=== PATIENT | female | born 1995 | race African-American/Black ===

== ENCOUNTER 2020-10-20 15:06 | Emergency (ER) | payer OTHER, SELFPAY ==
[2020-10-20 15:33] VITALS: BP 138/89; PULSE 92; RESP 16; TEMP 36.6; O2SAT 100
--- NOTE | 2020-10-20 15:53 | ED.BACK ---
HPI - Back Pain/Injury General Chief Complaint: Back Pain/Injury Stated Complaint: BACK PAIN Time Seen by Provider: 10/20/20 15:54 Source: patient and RN notes reviewed Mode of arrival: ambulatory Limitations: no limitations History of Present Illness HPI Narrative: 25-year-old female presents to [facility] with multiple complaints. Primary complaint is lower back pain since 14 October. States that she has been homeless and sleeping on friends and family's floors. States the pain keeps getting worse. Denies any loss of bowel or bladder. No numbness or tingling in extremities. Patient reports that when she walks that her left lower back starts to hurt. Denies any chest pain or abdominal pain. No saddle anesthesia. Walks with a normal gait. Denies any trauma to the area recently. Denies any urinary symptoms. States that she has had trouble with focusing and would like medication to help her focus and to help with depression and anxiety. Denies any homicidal or suicidal thoughts. When discussed with patient offered to transfer her to a local mental health ER which she declined. Multiple times patient was asked about homicidal and suicidal thoughts encourage patient to follow-up. Patient states that she is child had asthma and would like not like it to return. Patient not having any or signs and symptoms currently. Discussed with patient that we will treat her for her back pain however she is not having any asthma symptoms currently but treatment is not appropriate. Encouraged her to follow-up with a primary care provider Related Data Allergies Allergy/AdvReac Type Severity Reaction Status Date / Time No Known Allergies Allergy Unverified 10/20/20 15:32 Review of Systems Review of Systems: Narrative: CONSTITUTIONAL: Denies fever, chills, or sweats. EYES: Denies visual changes, redness, or discharge. CARDIOVASCULAR: Denies chest pain, palpitations, or edema. RESPIRATORY: Denies cough or dyspnea. GASTROINTESTINAL: Denies abdominal pain, nausea, vomiting, or diarrhea. GENITOURINARY: Denies dysuria or hematuria. SKIN: Denies rash or itching. MUSCULOSKELETAL: Reports lower back pain worse on the left than the right. Denies joint pain or myalgia. NEUROLOGIC: Denies headache, numbness, or weakness. No saddle anesthesia. No loss or retention of bowel or bladder. No numbness or tingling in extremities PSYCHIATRIC: Reports occasional anxiety or depression, denies any today. Denies any suicidal or homicidal thoughts All other systems reviewed are negative, except as documented in HPI. [facility] Past Medical History Medical History (Updated 10/20/20 @ 16:55 by Becca Solis) Asthma Comments At the time of my signature, I reviewed and agree with the nursing past medical, surgical, social, and family history. There is no relevant family history pertinent to the patient complaint. Patient states as a child she had asthma. Denies any surgical or other medical diagnoses. Denies taking any medications on a daily basis. Exam Narrative: Exam Narrative: GENERAL: This is a well-nourished, well-developed patient, in no apparent distress. Morbidly obese HEAD: normocephalic, atraumatic. EYES: PERRL. Sclera clear/white. Vision is grossly intact. EARS: External ears normal. NECK: Neck supple, non-tender. No midline tenderness. CARDIOVASCULAR: Regular rate and rhythm without murmurs, gallops, or rubs. RESPIRATORY: Clear to auscultation. Breath sounds equal bilaterally. No wheezes, rales, or rhonchi. GASTROINTESTINAL: Abdomen soft, non-tender, nondistended. SKIN: warm, dry, intact with no suspicious lesions or rash, good texture and turgor. NEURO: awake, alert, and oriented to person, place and time. There were no obvious focal neurologic abnormalities. Walks with a normal gait EXTREMITIES: No joint tenderness, effusion, or edema noted. BACK: Left lumbar tenderness on palpation. With movement changing from sitting to standing reports lumbar tend
== END 2020-10-20 16:14 | disposition home or self-care (01) ==
PROVIDERS: Emergency Provider Nurse Practitioner
DX: S39.012A Strain of muscle, fascia and tendon of lower back, initial encounter (principal); X58.XXXA Exposure to other specified factors, initial encounter; Z59.0 Homelessness
CPT/HCPCS: 99213; G0463

== ENCOUNTER 2021-06-01 18:25 | Emergency (ER) | payer OTHER, SELFPAY ==
[2021-06-01 18:29] VITALS: BP 151/102; PULSE 98; RESP 18; TEMP 36.8; O2SAT 99
[2021-06-01 20:25] VITALS: BP 148/100; PULSE 76; RESP 16; TEMP 36.9; O2SAT 100
--- NOTE | 2021-06-01 20:28 | ED.GENADULT ---
HPI - General Adult General Chief complaint: Dental/Oral Stated complaint: toothache Time Seen by Provider: 06/01/21 18:47 Source: patient Mode of arrival: ambulatory Limitations: no limitations History of Present Illness HPI narrative: Patient presents for evaluation of dental injury 1 year ago that has been intermittently uncomfortable reports that she has had increase in pain over the past 2 to 3 days. Patient had presented to the emergency department for dental treatment. She denies any drainage from the tooth. She states that she is ready to have the tooth pulled. Patient denies any nausea, vomiting, documented fever. She reports she has been using Orajel at home for discomfort without prolonged remittance of her symptoms. Patient denies chance of . Related Data Allergies Allergy/AdvReac Type Severity Reaction Status Date / Time No Known Allergies Allergy Verified 06/01/21 18:47 Review of Systems Review of Systems: CONSTITUTIONAL: Denies fever, chills, or sweats. EYES: Denies visual changes, redness, or discharge. ENT: Reports dental pain denies rhinorrhea, congestion, sore throat, or otalgia. CARDIOVASCULAR: Denies chest pain, palpitations, or edema. RESPIRATORY: Denies cough or dyspnea. GASTROINTESTINAL: Denies abdominal pain, nausea, vomiting, or diarrhea. GENITOURINARY: Denies dysuria or hematuria. SKIN: Denies rash or itching. MUSCULOSKELETAL: Denies back pain, joint pain, or myalgia. NEUROLOGIC: Denies headache, numbness, dizziness, or weakness. PSYCHIATRIC: Denies anxiety or depression. PMFSH Past Medical History Medical History Anxiety and depression Asthma Social History Social History Smoking status: Current some day smoker Tobacco type: cigarettes Alcohol intake: current Substance use: never Substance use type: does not use Gender identity (if verbalized by the patient): Female Exam Narrative: GENERAL: Well-appearing, well-nourished, and in no acute distress. HEAD: Normocephalic, atraumatic. EYES: PERRLA and EOMI. ENT: Nares clear, no rhinorrhea or epistaxis. Mucous membranes moist. Oropharynx without tonsillar hypertrophy exudate or other lesions. Bilateral TMs pearly musa nonbulging. Fractured tooth to right lower jaw. No drainage or abscess noted. CHEST: Clear to auscultation. No respiratory distress. No wheezes rales or rhonchi HEART: Regular rate and rhythm. No murmur heard. Normal peripheral pulses. EXTREMITIES: Normal range of motion. No edema. SKIN: Warm, dry, no rash. NEURO: No focal deficits. Alert and oriented x3. PSYCH: Normal mood and affect. Course Vital Signs Vital signs: Vital Signs Temperature 98.2 F 06/01/21 18:29 Pulse Rate 98 06/01/21 18:29 Respiratory Rate 18 06/01/21 18:29 Blood Pressure 151/102 H 06/01/21 18:29 Pulse Oximetry 99 06/01/21 18:29 Temperature 98.2 F 06/01/21 18:29 Pulse Rate 98 06/01/21 18:29 Respiratory Rate 18 06/01/21 18:29 Blood Pressure 151/102 H 06/01/21 18:29 Pulse Oximetry 99 06/01/21 18:29 Medical Decision Making MDM Narrative Medical decision making narrative: Discussed with patient that we do not remove teeth in the emergency department. Informed her that she needs to follow-up with a dentist for definitive treatment. Patient is nontoxic in appearance and her vitals are stable. Patient is appropriate to follow-up with dentist outpatient. Vital Signs Vital Signs: Vital Signs Temperature 98.2 F 06/01/21 18:29 Pulse Rate 98 06/01/21 18:29 Respiratory Rate 18 06/01/21 18:29 Blood Pressure 151/102 H 06/01/21 18:29 Pulse Oximetry 99 06/01/21 18:29 Temperature 98.2 F 06/01/21 18:29 Pulse Rate 98 06/01/21 18:29 Respiratory Rate 18 06/01/21 18:29 Blood Pressure 151/102 H 06/01/21 18:29 Pulse Oximetry 99 06/01/21 18:29 Discharge Plan Disch
== END 2021-06-01 20:25 | disposition home or self-care (01) ==
PROVIDERS: Emergency Provider Emergency Medicine; PCP Family Medicine
DX: K02.9 Dental caries, unspecified (principal); F41.9 Anxiety disorder, unspecified; F32.9 Major depressive disorder, single episode, unspecified; F17.210 Nicotine dependence, cigarettes, uncomplicated
CPT/HCPCS: 99283

== ENCOUNTER 2021-06-19 22:58 | Emergency (ER) | payer OTHER, SELFPAY ==
[2021-06-19 23:02] VITALS: BP 140/93; PULSE 74; RESP 16; TEMP 37.2; O2SAT 100
--- NOTE | 2021-06-19 23:51 | ED.GENADULT ---
HPI - General Adult General Chief complaint: Psychiatric Symptoms <Jose Manuel Shrestha MD - Last Filed: 06/20/21 07:01> Stated complaint: behavioral issues <Jose Manuel Shrestha MD - Last Filed: 06/20/21 07:01> Time Seen by Provider: 06/19/21 23:35 <Jose Manuel Shrestha MD - Last Filed: 06/20/21 07:01> History of Present Illness HPI narrative: Patient is a 26-year-old female presents the emergency department with chief complaint of needs mental health evaluation. Per the patient EMS was called saying that she wanted to harm herself although the patient denies suicidal or homicidal ideation. The patient states that a few hours ago she started having episodes where she will jerk her arms and legs while she is awake. Patient states is not having any chest pain denies shortness of breath reports she has no loss of consciousness with these episode occur. <Jose Manuel Shrestha MD - Last Filed: 06/20/21 07:01> Related Data Allergies/adverse reactions: Allergies Allergy/AdvReac Type Severity Reaction Status Date / Time No Known Allergies Allergy Verified 06/01/21 18:47 <Jose Manuel Shrestha MD - Last Filed: 06/20/21 07:01> Review of Systems Review of Systems: A 10 system review of systems was completed on the patient and is negative except for what is stated in the HPI. Nursing and ancillary documentation was reviewed. <Jose Manuel Shrestha MD - Last Filed: 06/20/21 07:01> [facility] Past Medical History Medical History: Medical History Anxiety and depression Asthma <Jose Manuel Shrestha MD - Last Filed: 06/20/21 07:01> Social History Social History: Social History Smoking status: Current some day smoker Tobacco type: cigarettes Alcohol intake: current Substance use: never Substance use type: does not use Gender identity (if verbalized by the patient): Female <Jose Manuel Shrestha MD - Last Filed: 06/20/21 07:01> Exam Narrative: GENERAL: Well-appearing, well-nourished, and in no acute distress. HEAD: Normocephalic, atraumatic. EYES: PERRLA and EOMI. ENT: Nares clear, no rhinorrhea or epistaxis. Mucous membranes moist. NECK: Supple. CHEST: Clear to auscultation. No respiratory distress. HEART: Regular rate and rhythm. No murmur heard. Normal peripheral pulses. ABDOMEN: Soft, nontender, nondistended, normal active bowel sounds. EXTREMITIES: Normal range of motion. No edema. SKIN: Warm, dry, no rash. NEURO: No focal deficits. Alert and oriented x3. PSYCH: Normal mood and affect. <Jose Manuel Shrestha MD - Last Filed: 06/20/21 07:01> Course Course Emergency Course: Patient is medically cleared for psychiatric evaluation and placement and transport <Jose Manuel Shrestha MD - Last Filed: 06/20/21 07:01> Vital Signs Vital signs: Vital Signs Temperature 37.2 C 06/19/21 23:02 Pulse Rate 74 06/19/21 23:02 Respiratory Rate 16 06/19/21 23:02 Blood Pressure 140/93 H 06/19/21 23:02 Pulse Oximetry 100 06/19/21 23:02 Temperature 37.2 C 06/19/21 23:02 Pulse Rate 68 06/20/21 10:36 Respiratory Rate 18 06/20/21 10:36 Blood Pressure 148/90 H 06/20/21 10:36 Pulse Oximetry 99 06/20/21 10:36 <Jose Manuel Shrestha MD - Last Filed: 06/20/21 07:01> Medical Decision Making Vital Signs Vital Signs: Vital Signs Temperature 37.2 C 06/19/21 23:02 Pulse Rate 74 06/19/21 23:02 Respiratory Rate 16 06/19/21 23:02 Blood Pressure 140/93 H 06/19/21 23:02 Pulse Oximetry 100 06/19/21 23:02 Temperature 37.2 C 06/19/21 23:02 Pulse Rate 68 06/20/21 10:36 Respiratory Rate 18 06/20/21 10:36 Blood Pressure 148/90 H 06/20/21 10:36 Pulse Oximetry 99 06/20/21 10:36 <Jose Manuel Shrestha MD - Last Filed: 06/20/21 07:01> Lab Data Re
[2021-06-20] MEDS: LORazepam (*CRX) 1 MG TABLET PO (00:01)
--- NOTE | 2021-06-20 00:05 | ECG_ITS ---
Measurements Intervals [place] Rate: 97 P: 58 MN: 180 QRS: 85 QRSD: 85 T: 5 QT: 356 QTc: 453 Interpretive Statements SINUS RHYTHM POSSIBLE LEFT ATRIAL ENLARGEMENT DELAYED PRECORDIAL R/S TRANSITION MINIMAL Q WAVES- INFERIOR LEADS NONSPECIFIC T-WAVE ABNORMALITY- ANT/INF LEADS BASELINE ARTIFACT- III BORDERLINE ECG Electronically Signed On 06-20-2021 8:52:17 [employer] by Nabor Hughes D.O.
--- NOTE | 2021-06-20 00:10 | PC.NURSE ---
pt slapping and kicking stretcher. pt states she cannot help her movements. pt redirected. pt still hitting and kicking stretcher.
[2021-06-20 00:19] LABS: Basophils Percent Auto 0.5 % (0.2-1.2); Eosinophils Absolute Auto 0.1 K/mm3 (0-0.3); Eosinophils Percent Auto 1.7 % (0-4.4); Hematocrit 33.4 % (37.0-47.0); Hemoglobin 10.6 g/dL (12.0-15.0); Immature Granulocyte Absolute 0.02 K/mm3 (0.00-0.031); Immature Granulocyte Percent A 0.3 % (0-0.5); Lymphocytes Absolute Auto 2.84 K/mm3 (0.9-3.2); Lymphocytes Percent Auto 36.5 % (18.3-44.2); Mean Corpuscular HGB Conc 31.7 g/dl (32-36); Mean Corpuscular Hemoglobin 23.6 pg (26-34); Mean Corpuscular Volume 74.2 fl (80-100); Mean Platelet Volume 10.5 fl (7.4-10.4); Monocytes Absolute Auto 0.8 K/mm3 (0.1-0.6); Monocytes Percent Auto 10.1 % (2.6-8.5); Neutrophils Percent Auto 50.9 % (45.5-73.1); Platelet Count Result 278 k/mm3 (150-375); Red Cell Distribution Width 17.9 % (11.5-14.5); White Blood Count 7.8 K/mm3 (4.5-10.0)
[2021-06-20 00:24] VITALS: BP 141/88; PULSE 105; RESP 25; O2SAT 100
[2021-06-20 00:33] LABS: Acetaminophen < 10 ug/mL (10-30); Ethanol < 10 mg/dL (<10); Salicylate < 1.0 mg/dL (2-20)
[2021-06-20 00:34] LABS: Alanine Aminotransferase 16 U/L (4-35); Albumin Level 4.6 g/dL (3.5-5.1); Alkaline Phosphatase 92 U/L (38-126); Anion Gap 9 mmol/L (8-16); Aspartate Amino Transferase 31 U/L (14-36); Bilirubin,Total 0.4 mg/dL (0.2-1.3); Blood Urea Nitrogen 7 mg/dL (7-17); Calcium 9.8 mg/dL (8.4-10.2); Carbon Dioxide 27 mmol/L (22-30); Chloride 103 mmol/L (98-107); Estimated CRCL calculation 130 ml/min; Estimated Glomerular Filt Rate > 60; Glucose 109 mg/dL (65-110); Potassium 3.6 mmol/L (3.4-5.0); Sodium 139 mmol/L (137-145)
[2021-06-20 00:41] LABS: Add Urine Microscopic? YES; Appearance Urine Cloudy (Clear); Bilirubin Urine Negative (Negative); Blood Urine Negative (Negative); Color Urine Yellow (Yellow); Glucose Urine UA Negative (Negative); Ketones Urine Negative (Negative); Leukocyte Esterase Ur Negative LEU/UL (Negative); Nitrate Urine Negative (Negative); Protein Urine Negative (Negative); Specific Grav Ur 1.008 (1.001-1.035); Squamous Epithelial Cell Urine Many /hpf (Few); Urobilinogen Urine Negative mg/dL (<2.0)
[2021-06-20 00:53] LABS: Benzodiazepines Screen Urine Negative (Negative)
[2021-06-20 01:02] LABS: Amphetamine Screen Urine Negative (Negative); Cannabinoid Screen Urine Negative (Negative); Cocaine Screen Urine Negative (Negative); Methadone Screen Urine Negative (Negative); Opiate Screen Urine Negative (Negative); Phencyclidine Screen Urine Negative (Negative)
[2021-06-20 01:17] LABS: Barbiturate Screen Urine Negative (Negative)
--- NOTE | 2021-06-20 02:00 | PC.NURSE ---
pt. on SI precautions per Dr. Shrestha
--- NOTE | 2021-06-20 03:09 | PC.NURSE ---
pt medically cleared by Dr. Shrestha. Violet w/ crisis aware and evaluated pt. Violet called [facility] to get more information on the patient. According to [place] [employer] pt was texting family making suicidal statements and threatening to kill her aunt and then kill herself. EDP aware of situation. sitter placed at bedside, belongings locked in safe area, and items placed out of room. pt is resting at this time. Violet faxed pt's chart to [facility] and will follow up in the morning.
[2021-06-20 03:12] LABS: EDCOVIDSCREEN Negative (Negative)
--- NOTE | 2021-06-20 04:00 | PC.NURSE ---
[facility] called and denied pt at this time.
[2021-06-20 04:27] VITALS: BP 151/102; PULSE 85; RESP 18; O2SAT 100
--- NOTE | 2021-06-20 07:29 | PC.NURSE ---
Spoke with Violet from Crisis at this time. Reported to Violet that [facility] had denied patient. States she will continue to look for placement for patient today. Will continue to monitor.
[2021-06-20 10:36] VITALS: BP 148/90; PULSE 68; RESP 18; O2SAT 99
--- NOTE | 2021-06-20 10:57 | PC.NURSE ---
Recieved a call from [place] coordinator. Gave me fax information for patient paperwork to be faxed over. Fax completed at 1050. Will continue to monitor patient.
--- NOTE | 2021-06-20 11:18 | PC.NURSE ---
Ubaldo distance education coordinator from [facility] calling to do a phone interview with patient. Phone number [phone].
--- NOTE | 2021-06-20 11:24 | PC.NURSE ---
Pt in [facility] speaking with [facility]'s coordinator on the phone.
--- NOTE | 2021-06-20 11:38 | PC.NURSE ---
Spoke with Ubaldo at [facility]. Will speak to his doctor for admission
--- NOTE | 2021-06-20 11:43 | PC.NURSE ---
Rachel from [facility]. Request fax of patient chart to [facility] at [phone]
--- NOTE | 2021-06-20 12:34 | PC.NURSE ---
Ubaldo from [facility] called. Pt has been accepted, attending physician is Dr Diaz. Bed 1042. Call report to [phone]
--- NOTE | 2021-06-20 12:44 | PC.NURSE ---
Tim nurse from [facility] called for report on patient.
--- NOTE | 2021-06-20 13:00 | PC.NURSE ---
samuel ems accepted transfer to [facility] [id number] trip [phone]
[2021-06-20 13:10] VITALS: BP 132/86; PULSE 70; TEMP 36.6; O2SAT 97
--- NOTE | 2021-06-20 13:32 | PC.NURSE ---
Mother, Meche, called for update. Pt agreeable to speak with mother, call transferred to hallway phone.
--- NOTE | 2021-06-20 15:19 | PC.NURSE ---
Report called to AISHA Becker at [facility]. This RN called report to [facility], did not call report prior to patient discharge to [facility] facility. Situation rectified at this time
== END 2021-06-20 13:43 ==
PROVIDERS: Emergency Medicine; Emergency Provider Emergency Medicine; PCP Family Medicine
DX: R45.851 Suicidal ideations (principal); F32.9 Major depressive disorder, single episode, unspecified; F41.9 Anxiety disorder, unspecified; F17.200 Nicotine dependence, unspecified, uncomplicated; Z20.822 Contact with and (suspected) exposure to COVID-19
CPT/HCPCS: 36415; 80053; 80307; 81001; 81025; 84443; 85025; 87426; 93005; 99285; A9270; C9803

== ENCOUNTER 2021-08-09 11:45 | Emergency (ER) | payer OTHER, SELFPAY ==
[2021-08-09 11:57] VITALS: BP 149/100; PULSE 99; RESP 16; TEMP 36.6; O2SAT 100
--- NOTE | 2021-08-09 13:40 | ED.DENTAL ---
HPI - Dental/Oral General Chief complaint: Dental/Oral Stated complaint: dental pain Time Seen by Provider: 08/09/21 13:26 Source: RN notes reviewed History of Present Illness HPI Narrative: Patient presents emergency room from home for dental pain. Patient states that she had a history of dental pain remotely over the past year that this episode of pain has been worse over the past 2 days pain is located in the right lower molar described as aching in nature she denies any swelling of the face denies any fevers or chills or other symptoms states last time she had the symptoms she is placed on antibiotics and naproxen with good relief states she has not been able to see a dentist Related Data Home Medications Medication Instructions Recorded Confirmed chlorhexidine gluconate 0.12 % 15 ml BUCCAL BID 07/02/21 07/02/21 mouthwash sodium chloride 0.65 % nasal spray 1 spray INTRANASAL BID PRN 07/02/21 07/02/21 aerosol Allergies Allergy/AdvReac Type Severity Reaction Status Date / Time No Known Allergies Allergy Verified 08/09/21 13:19 Review of Systems Review of Systems: Gen.: Denies fevers or chills HEENT: See HPI Respiratory: Denies shortness of breath Neuro: Denies headache Skin: Denies rash Endo: Denies DM PMFSH Past Medical History Medical History Anxiety and depression Asthma Social History Social History Smoking status: Former smoker Tobacco type: cigarettes Alcohol intake: current Substance use: never Substance use type: does not use Gender identity (if verbalized by the patient): Female Exam Narrative: APPEARANCE: No acute distress, nontoxic, resting in bed HEENT: Normocephalic, atraumatic, TMs clear bilaterally, nares patent, oral mucosa moist, airway patent, tooth #30 is carious and tender to palpation mild erythema with no fluctuance of the gum RESPIRATORY: No respiratory distress MUSCULOSKELETAl: Moves all extremities. NEURO: Awake and alert. Following commands, speech normal, no focal deficits SKIN:: Warm, dry. Normal Color PSYCHIATRIC: Normal affect/mood Course Course Emergency Course: Discussed with patient results of workup and diagnosis. Discussed need for follow-up with primary care, proper use of medication, and reasons to return to the emergency department. Patient understands and agrees to current treatment plan Vital Signs Vital signs: Vital Signs Temperature 98 F 08/09/21 11:57 Pulse Rate 99 08/09/21 11:57 Respiratory Rate 16 08/09/21 11:57 Blood Pressure 149/100 H 08/09/21 11:57 Pulse Oximetry 100 08/09/21 11:57 Temperature 98 F 08/09/21 11:57 Pulse Rate 99 08/09/21 11:57 Respiratory Rate 16 08/09/21 11:57 Blood Pressure 149/100 H 08/09/21 11:57 Pulse Oximetry 100 08/09/21 11:57 Discharge Plan Discharge Clinical Impression: Odontalgia, Dental caries Patient Disposition: Home, Self-Care Condition: Stable Instructions: Antibiotic Form, Toothache (ED) Additional Instructions: Return for increasing pain fever or any other symptoms of concern Prescriptions: New penicillin V potassium 500 mg tablet 500 mg PO TID Qty: 30 RF: 0 ibuprofen [IBU] 600 mg tablet 600 mg PO Q6H PRN (Reason: pain) Qty: 20 RF: 0 No Action chlorhexidine gluconate [Peridex] 0.12 % mouthwash 15 ml buccal BID RF: 0 sodium chloride [[place] Nasal] 0.65 % aerosol,spray 1 spray intranasal BID PRNRF: 0 risperidone 0.5 mg tablet 0.5 mg PO BID Qty: 60 RF: 0 trazodone 50 mg tablet 50 mg PO QHS Qty: 30 RF: 0 naproxen 500 mg tablet 500 mg PO BID PRN (Reason: pain) Qty: 20 RF: 0 cholecalciferol (vitamin D3) 1,250 mcg (50,000 unit) capsule 1,250 mcg PO WEEKLY Qty: 14 RF: 1 albuterol sulfate 90 mcg/actuation HFA aerosol inhaler 1 inh inhalation Q4H PRN (Reason: shortness of breath or whee
[2021-08-09] MEDS: IBUPROFEN 600 MG TABLET PO (14:02)
[2021-08-09] MEDS: PENICILLIN V POTASSIUM 250 MG TABLET 500 MG PO (14:02)
== END 2021-08-09 14:07 | disposition home or self-care (01) ==
PROVIDERS: Emergency Provider Emergency Medicine; PCP Nurse Practitioner
DX: K02.9 Dental caries, unspecified (principal); Z87.891 Personal history of nicotine dependence
CPT/HCPCS: 99283; A9270

== ENCOUNTER 2024-05-04 00:48 | Emergency (ER) | payer OTHER, SELFPAY ==
[2024-05-04 00:49] VITALS: BP 129/89; PULSE 115; RESP 20; TEMP 36.4; O2SAT 100
--- NOTE | 2024-05-04 00:59 | PC.NURSE ---
EMS told this rn that the Patient Aunt verbalized to them that we prayed over her (pt) for the sex demons to break her fabiola.
[2024-05-04] MEDS: MAG HYDROX/AL HYDROX/SIMETH 30 ML UDC PO (02:54)
[2024-05-04] MEDS: MAGNESIUM CITRATE 300 ML BTL PO (02:55)
[2024-05-04 03:36] LABS: Add Urine Microscopic? YES; Appearance Urine Cloudy (Clear); Bacteria Urine Rare /hpf; Bilirubin Urine Negative (Negative); Blood Urine 3+ (Negative); Color Urine Yellow (Yellow); Glucose Urine UA Negative (Negative); Ketones Urine Trace mg/dL (Negative); Leukocyte Esterase Ur Negative LEU/UL (Negative); Nitrate Urine Negative (Negative); Non Pathogenic Casts 0-2; Protein Urine Negative (Negative); RBC Urine 51-100 /hpf (0-2); Specific Grav Ur 1.021 (1.001-1.035); Squamous Epithelial Cell Urine Moderate /hpf (Few); Urobilinogen Urine 0.2 mg/dL (<2.0); pH Urine 5.5 (5.0-9.0)
[2024-05-04 03:55] VITALS: BP 161/78; PULSE 96; RESP 14; O2SAT 100
--- NOTE | 2024-05-04 03:56 | ED.FEMALEGU ---
HPI - Female Genitourinary General Chief complaint: Urogenital-Female Stated complaint: hematuria Time Seen by Provider: 05/04/24 02:16 History of Present Illness HPI Narrative: Patient had been diagnosed with a urinary tract infection but stopped taking the antibiotics because she was on her period. her. Is now ending so she would like to get more antibiotics. She also has some constipation and gas, she states she has had this for 3 years now. She does have some bloating but otherwise no abdominal pain or flank pain. Related Data Home Medications Medication Instructions Recorded Confirmed chlorhexidine gluconate 0.12 % 15 ml buccal BID 07/02/21 07/02/21 mouthwash (Peridex) sodium chloride 0.65 % nasal spray 1 spray intranasal BID PRN 07/02/21 07/02/21 aerosol ([place] Nasal) Allergies Allergy/AdvReac Type Severity Reaction Status Date / Time No Known Allergies Allergy Verified 05/04/24 04:01 Review of Systems Review of Systems: All systems reviewed & are unremarkable except as noted in HPI and below PMFSH Past Medical History Medical History Anxiety and depression Asthma Social History Social History Smoking status: Former smoker Tobacco type: cigarettes Alcohol intake: current Substance use: never Substance use type: does not use Living arrangements: with family Occupation/Education: unemployed Gender identity (if verbalized by the patient): Female Exam Narrative: EXAMINATION OF ORGAN SYSTEMS/BODY AREAS: Constitutional: Vital signs per nursing GENERAL:[No acute distress, non-toxic appearing.] HEAD: Normal with no signs of head trauma. EYES: EOMI, conjunctiva normal ENT: Hearing grossly intact LUNGS: Nonlabored breathing. HEART: [Regular rate and rhythm] ABD: [Soft], [nontender to palpation] EXT: Normal range of motion SKIN: [No rashes or lesions.] NEURO: [Alert and oriented x 3. No gross focal sensory or strength deficits.] PSYCH: Normal affect Course Vital Signs Vital signs: Vital Signs Temperature 97.6 F 05/04/24 00:49 Pulse Rate 115 H 05/04/24 00:49 Respiratory Rate 20 05/04/24 00:49 Blood Pressure 129/89 09/26/24 00:49 Pulse Oximetry 100 05/04/24 00:49 Oxygen Delivery Room Air 05/04/24 00:49 Temperature 97.6 F 05/04/24 00:49 Pulse Rate 96 05/04/24 03:55 Respiratory Rate 14 05/04/24 03:55 Blood Pressure 161/78 H 05/04/24 03:55 Pulse Oximetry 100 05/04/24 03:55 Oxygen Delivery Room Air 05/04/24 00:49 MDM - Female Genitourinary MDM Narrative Medical decision making narrative: patient presents here requesting refill of her antibiotics for UTI because she had stopped taking it briefly due to miss conception that she cannot take it while menstruating. She also has been having constipation and gas for years, she did have a bowel movement yesterday. She is requesting a colon cleanse here, I did discuss with the patient that I did not feel this is necessary and could cause more harm than good, but I did offer magnesium citrate since she had already been taking MiraLax at home without much improvement. Overall she is very well-appearing here, abdomen soft nontender, normal vital signs, I do feel she is stable for discharge with outpatient management and return precautions. Patient agreeable to this plan. Lab Data Labs: Lab Results 05/04/24 05/04/24 Range/Units 02:57 03:55 Urine Color Yellow (Yellow) Urine Appearance Cloudy H (Clear) Urine pH 5.5 (5.0-9.0) Ur Specific [place] 1.021 (1.001-1.035) Urine Protein Negative (Negative) mg/dL Urine Glucose (UA) Negative (Negative) mg/dL Urine Ketones Trace H (Negative) mg/dL Ur Blood (Man) 3+ H (Negative) Urine Nitrate Negative (Negative) Urine Bilirubin Negative (Negative) Urine Urobilinogen 0.2
[2024-05-04 03:57] LABS: BEDSIDEPREGUCG Negative (Negative)
[2024-05-04 03:57] LABS: Amphetamine Screen Urine Negative (Negative); Barbiturate Screen Urine Negative (Negative); Benzodiazepines Screen Urine Negative (Negative); Cannabinoid Screen Urine Negative (Negative); Cocaine Screen Urine Negative (Negative); Methadone Screen Urine Negative (Negative); Opiate Screen Urine Negative (Negative); Phencyclidine Screen Urine Negative (Negative)
== END 2024-05-04 04:15 | disposition home or self-care (01) ==
PROVIDERS: Emergency Provider Emergency Medicine
DX: N39.0 Urinary tract infection, site not specified (principal); K59.00 Constipation, unspecified
CPT/HCPCS: 80307; 81001; 81025; 87086; 87088; 99283; A9270

== ENCOUNTER 2024-05-30 17:19 | Emergency (ER) | payer OTHER, SELFPAY ==
--- NOTE | ~2024-05-30 | XR_ITS ---
CHEST RADIOGRAPH CLINICAL HISTORY: cp, sob . COMPARISON: 09/23/2008 TECHNIQUE: Single portable view of the chest. FINDINGS The cardiomediastinal silhouette is enlarged, unchanged. The lungs are clear. Visualized osseous structures and soft tissues are unremarkable. IMPRESSION: No focal infiltrate or effusion. Reviewed, dictated and finalized at location A.
--- NOTE | ~2024-05-30 | CT_ITS ---
EXAMINATION: CTA chest PE protocol DATE: 05/30/2024 21:27 INDICATION: Chest tightness, shortness of breath, elevated d-dimer. TECHNIQUE: Computed tomography (CT) pulmonary angiogram of the chest was performed with 100 mL Omnipa que-350 intravenous contrast. Additional 3D reconstructions utilizing coronal maximum intensity proje ction (MIP) were performed. Automated exposure control and iterative reconstruction technique were em ployed. The dose-length product was 1129.01 mGy-cm. COMPARISON: None FINDINGS: No pulmonary embolism. No pneumonia, pulmonary edema or other pulmonary infiltrates. No pleural effus ion or pneumothorax. Mild cardiomegaly. Mild pectus excavatum which exerts mild mass effect upon the anterior wall of the right atrium. Small pericardial effusion. Thoracic aorta is normal in caliber wi th no dissection. No pathologically enlarged thoracic lymphadenopathy. Visualized upper abdomen is un remarkable. Mild thoracic spondylosis. IMPRESSION: 1. No pulmonary nodules or other acute cardiopulmonary disease. 2. Mild cardiomegaly with small pericardial effusion. Reviewed, dictated and finalized at location A.
--- NOTE | 2024-05-30 17:26 | ECG_ITS ---
Test Date: 2024-05-30 17:31:16 Measurements Intervals [place] Rate: 94 P: 58 AL: 185 QRS: 90 QRSD: 91 T: 4 QT: 367 QTc: 461 Interpretive Statements SINUS RHYTHM RIGHT AXIS DEVIATION RIGHT ATRIAL ENLARGEMENT [0.3mV P WAVE] LEFT ATRIAL ENLARGEMENT [-0.15mV P WAVE IN V1/V2] NONSPECIFIC T-WAVE ABNORMALITY ABNORMAL CAG No previous ECG available for comparison Electronically Signed On 05-31-2024 10:17:11 CDT by Ambrose Torres M.D.
--- NOTE | 2024-05-30 17:38 | ED.SOB ---
HPI - SOB/Dyspnea General Chief Complaint: Shortness of Breath/Dyspnea Stated Complaint: SOB, chest tightness Time Seen by Provider: 05/30/24 17:20 Source: patient and EMS Mode of arrival: EMS Limitations: no limitations and clinical condition History of Present Illness HPI Narrative: Patient is a 29 y/o female, with PMH of bipolar disorder, who presents to the ED via EMS with report of chest tightness. Per EMS report, they were called by PD to [employer] due to report of patient moaning and concerned to be pleasuring herself in the bathroom at [employer]. Upon EMS arrival, patient began c/o chest tightness and shortness of breath. Patient reports she was just trying to get the flies away in the bathroom. She was then brought here for further evaluation. 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 States she left her inhaler at home today. Also reports constipation for the past 3 years. Denies abdominal pain/N/V. Related Data Home Medications Medication Instructions Recorded Confirmed chlorhexidine gluconate 0.12 % 15 ml buccal BID 07/02/21 07/02/21 mouthwash (Peridex) sodium chloride 0.65 % nasal spray 1 spray intranasal BID PRN 07/02/21 07/02/21 aerosol ([place] Nasal) Allergies Allergy/AdvReac Type Severity Reaction Status Date / Time No Known Allergies Allergy Verified 05/04/24 04:01 Review of Systems Review of Systems: All systems reviewed & are unremarkable except as noted in HPI. All systems reviewed & are unremarkable except as noted in HPI and below PMFSH Past Medical History Medical History Anxiety and depression Asthma Social History Social History Smoking status: Former smoker Tobacco type: cigarettes Alcohol intake: current Substance use: never Substance use type: does not use Living arrangements: with family Occupation/Education: unemployed Gender identity (if verbalized by the patient): Female Exam Narrative: GENERAL: Well appearing, morbidly obese with BMI of 57.7, non-toxic, in no acute distress. HEAD: Normocephalic, atraumatic. RESPIRATORY: Airway patent, respirations nonlabored. Clear to auscultation bilaterally, no rales, rhonchi, wheezing. No focal lung sounds. CARDIOVASCULAR: Borderline tachycardic with regular rhythm without murmurs, rubs, or gallops. ABDOMINAL: Soft, no focal tenderness, nondistended. Normoactive BS. MUSCULOSKELETAL: Moves all extremities. No gross deformities. SKIN: Warm, dry, normal color. NEURO: A&O X3. Speech clear. Cranial nerves II-XII grossly intact. No ataxic movements. PSYCHIATRIC: Manic/pressured speech, flight of ideas. Course Vital Signs Vital signs: Vital Signs Pulse Rate 89 05/30/24 17:39 Respiratory Rate 22 H 05/30/24 17:39 Blood Pressure 174/94 H 05/30/24 17:39 Pulse Oximetry 100 05/30/24 17:39 Temperature 98.0 F 05/30/24 22:38 Pulse Rate 80 05/30/24 22:38 Respiratory Rate 20 05/30/24 22:38 Blood Pressure 168/90 H 05/30/24 22:38 Pulse Oximetry 97 05/30/24 22:38 Oxygen Delivery Room Air 05/30/24 17:50 MDM - SOB/Dyspnea MDM Narrative Medical decision making narrative: Patient presented to ED with report of chest tightness and shortness of breath. Has been ongoing for quite some time. Came from [employer] today as police were called due to abnormal sounds in the public bathroom. Vital signs are stable upon arrival. Patient is in no acute distress. Has underlying mental health disorders. Has previously been on risperidone, though per med rec, it does not appear this has since filled recently. Speech is manic/pressured with flight of ideas. Difficult to follow conversation, but she is re-directable. Denies SI/HI. Do not feel she is a harm to herself or others at this time. Basic laboratory studies are unrem
[2024-05-30 17:39] VITALS: BP 174/94; PULSE 89; RESP 22; O2SAT 100
[2024-05-30 17:45] LABS: Basophils Percent Auto 0.3 % (0.2-1.2); Eosinophils Absolute Auto 0.2 K/mm3 (0-0.3); Hematocrit 36.7 % (37.0-47.0); Hemoglobin 11.8 g/dL (12.0-15.0); Immature Granulocyte Absolute 0.01 K/mm3 (0.00-0.031); Immature Granulocyte Percent A 0.1 % (0-0.5); Lymphocytes Absolute Auto 2.25 K/mm3 (0.9-3.2); Lymphocytes Percent Auto 30.6 % (18.3-44.2); Mean Corpuscular HGB Conc 32.2 g/dl (32-36); Mean Corpuscular Hemoglobin 26.5 pg (26-34); Mean Corpuscular Volume 82.3 fl (80-100); Mean Platelet Volume 10.6 fl (7.4-10.4); Monocytes Absolute Auto 0.6 K/mm3 (0.1-0.6); Monocytes Percent Auto 8.2 % (2.6-8.5); Neutrophils Absolute Auto 4.3 K/mm3 (1.3-6.7); Neutrophils Percent Auto 57.8 % (45.5-73.1); Platelet Count Result 266 k/mm3 (150-375); Red Blood Count 4.46 M/mm3 (4.2-5.4); Red Cell Distribution Width 19.9 % (11.5-14.5); White Blood Count 7.4 K/mm3 (4.5-10.0)
[2024-05-30 17:57] LABS: Alanine Aminotransferase 25 U/L (6-35); Albumin Level 4.4 g/dL (3.5-5.1); Alkaline Phosphatase 67 U/L (38-126); Anion Gap 7 mmol/L (4-12); Aspartate Amino Transferase 35 U/L (14-36); Bilirubin,Total 0.3 mg/dL (0.2-1.3); Blood Urea Nitrogen 7 mg/dL (7-17); Calcium 9.5 mg/dL (8.4-10.2); Carbon Dioxide 27 mmol/L (22-30); Chloride 104 mmol/L (98-107); Estimated CRCL calculation 159 ml/min; Estimated Glomerular Filt Rate > 60; Glucose 95 mg/dL (65-110); INR 1.1; Potassium 3.7 mmol/L (3.4-5.0); Prothrombin Time 15.1 Seconds (11.1-14.7); Sodium 138 mmol/L (137-145)
[2024-05-30 17:58] LABS: Partial Thromboplastin Time 35.3 Seconds (22.3-36.8)
[2024-05-30 18:09] LABS: NT Pro B Type Natriuretic Pept 48 pg/mL (19.9-100); Troponin I < 0.012 ng/mL (0.000-0.034)
[2024-05-30 18:23] LABS: D Dimer 0.73 ug/mL (<0.48)
[2024-05-30 18:24] LABS: Ethanol < 10 mg/dL (<10)
--- NOTE | 2024-05-30 19:30 | PC.NURSE ---
Pt made aware of need for urine, refused straight cath at this time. Urine cup at bedside.
[2024-05-30 19:48] LABS: SPREG INTERNAL CONTROL Positive; Serum Qual hCG Negative
[2024-05-30 20:24] LABS: Add Urine Microscopic? YES; Appearance Urine Clear (Clear); Bacteria Urine Rare /hpf; Bilirubin Urine Negative (Negative); Blood Urine Negative (Negative); Color Urine Yellow (Yellow); Glucose Urine UA Negative (Negative); Ketones Urine Negative (Negative); Leukocyte Esterase Ur Trace LEU/UL (Negative); Nitrate Urine Negative (Negative); Non Pathogenic Casts 0-2; Protein Urine Trace mg/dL (Negative); RBC Urine 0-2 /hpf (0-2); Specific Grav Ur 1.027 (1.001-1.035); Squamous Epithelial Cell Urine Few /hpf (Few); Urobilinogen Urine 0.2 mg/dL (<2.0); WBC Urine 0-5 /hpf (0-3); pH Urine 5.5 (5.0-9.0)
[2024-05-30 20:38] LABS: Amphetamine Screen Urine Negative (Negative); Barbiturate Screen Urine Negative (Negative); Benzodiazepines Screen Urine Negative (Negative); Cannabinoid Screen Urine Negative (Negative); Cocaine Screen Urine Negative (Negative); Methadone Screen Urine Negative (Negative); Opiate Screen Urine Negative (Negative); Phencyclidine Screen Urine Negative (Negative)
[2024-05-30 22:38] VITALS: BP 168/90; PULSE 80; RESP 20; TEMP 36.7; O2SAT 97
[2024-05-30 23:02] LABS: Troponin I < 0.012 ng/mL (0.000-0.034)
== END 2024-05-30 23:45 | disposition home or self-care (01) ==
PROVIDERS: Emergency Provider Physician Assistant
DX: R07.89 Other chest pain (principal); J45.909 Unspecified asthma, uncomplicated; E66.01 Morbid (severe) obesity due to excess calories; Z68.43 Body mass index [BMI] 50.0-59.9, adult; F41.9 Anxiety disorder, unspecified; F31.9 Bipolar disorder, unspecified; Z87.891 Personal history of nicotine dependence; Z79.899 Other long term (current) drug therapy
CPT/HCPCS: 36415; 71045; 71275; 80053; 80307; 81001; 82077; 83880; 84484; 84703; 85025; 85380; 85610; 85730; 93005; 99284; Q9967

== ENCOUNTER 2024-06-05 14:41 | Emergency (ER) | payer OTHER, SELFPAY ==
[2024-06-05 14:44] VITALS: BP 151/91; PULSE 70; RESP 15; TEMP 36.4; O2SAT 100
--- NOTE | 2024-06-05 14:57 | ED.FEMALEGU ---
HPI - Female Genitourinary General Chief complaint: Urogenital-Female <Linda Noriega APRN - Last Filed: 06/05/24 15:00> Stated complaint: fluid on chest, UTI <Linda Noriega APRN - Last Filed: 06/05/24 15:00> Time Seen by Provider: 06/05/24 14:45 <Linda Noriega APRN - Last Filed: 06/05/24 15:00> Focused HPI: Patient is a 29-year-old female who presents to the ER with complaints of frequent urination. She reports she was recently put on Lasix. Today patient was at the library and she reports she was incontinent. Patient reports she would like to get some IV fluid meds. She reports she has been taking her medications as prescribed. Patient denies any chest pain, shortness of breath, other signs/ symptoms of infection. GENERAL: Well-appearing, well-nourished, and in no acute distress. HEAD: Normocephalic, atraumatic. CHEST: Clear to auscultation. ?No respiratory distress. HEART: Regular rate and rhythm.? NEURO: ?Alert and oriented x3. Patient screened in triage and initial orders placed.? ?Additional care and disposition to be based upon?diagnostic testing and treatment. <Linda Noriega APRN - Last Filed: 06/05/24 15:00> Related Data Home medications: Home Medications Medication Instructions Recorded Confirmed chlorhexidine gluconate 0.12 % 15 ml buccal BID 07/02/21 07/02/21 mouthwash (Peridex) sodium chloride 0.65 % nasal spray 1 spray intranasal BID PRN 07/02/21 07/02/21 aerosol ([place] Nasal) <Linda Noriega APRN - Last Filed: 06/05/24 15:00> Allergies/Adverse reactions: Allergies Allergy/AdvReac Type Severity Reaction Status Date / Time No Known Allergies Allergy Verified 06/05/24 16:26 <Linda Noriega APRN - Last Filed: 06/05/24 15:00> Review of Systems Review of Systems: CONSTITUTIONAL: Denies fever CARDIOVASCULAR: Denies chest pain RESPIRATORY: Denies dyspnea. GENITOURINARY: Denies dysuria or hematuria. <iJa Jalloh PA-C - Last Filed: 06/05/24 17:48> All systems reviewed & are unremarkable except as noted in HPI and below <Jia Jalloh PA-C - Last Filed: 06/05/24 17:48> PMFSH Past Medical History Medical History: Medical History Anxiety and depression Asthma <Linda Noriega APRN - Last Filed: 06/05/24 15:00> Social History Social History: Social History Smoking status: Former smoker Tobacco type: cigarettes Alcohol intake: current Substance use: never Substance use type: does not use Living arrangements: with family Occupation/Education: unemployed Gender identity (if verbalized by the patient): Female <Linda Noriega APRN - Last Filed: 06/05/24 15:00> Exam Narrative: GENERAL: Well-appearing, well-nourished, and in no acute distress. HEAD: Normocephalic, atraumatic. EYES: EOMI. ENT: Nares clear, no rhinorrhea or epistaxis. Mucous membranes moist. NECK: Supple. No JVD CHEST: Clear to auscultation. No respiratory distress. No wheezes rales or rhonchi HEART: Regular rate and rhythm. No murmur heard. Normal peripheral pulses. ABDOMEN: No CVA tenderness EXTREMITIES: Normal range of motion. No edema. SKIN: Warm, dry, no rash. NEURO: No focal deficits. Alert and oriented x3. PSYCH: Normal mood and affect <Jia Jalloh PA-C - Last Filed: 06/05/24 17:48> Course Course Emergency Course: Patient updated on her workup and agrees with plan of care <Jia Jalloh PA-C - Last Filed: 06/05/24 17:48> Vital Signs Vital signs: Vital Signs Temperature 97.5 F L 06/05/24 14:44 Pulse Rate 70 06/05/24 14:44 Respiratory Rate 15 06/05/24 14:44 Blood Pressure 151/91 H 06/05/24 14:44 Pulse Oximetry 100 06/05/24 14:44 Oxygen Delivery Room Air 06/05/24 14:44 Temperature 97.5 F L 06/05/24 14:44 Pulse Rate 70 06/05/24 14:44 Respiratory Rate 15 06/05/24 14:44 Blood Pressure 151/91 H 06/05/24 14:44 Pulse Oximetry 100 06/05/24 14:44 Oxygen Delivery Room Air 06/05/24 14:44 <Linda Noriega, SENIOR BUYER - Last Filed: 06/05/24 15:00> Vital Signs Temperature 97.5 F L 06/05/24 14:44 Pulse Rate 70 06/05/24 14:44 Respiratory Rate 15 06/05/24 14:44 Blood Pressure 151/91 H 06/05/24 14:44 Pulse Oximetry 100 06/05/24 14:44 Oxygen Delivery Room Air 06/05/24 14:44 Temperature 97.5 F L 06/05/24 14:44 Pulse Rate 70 06/05/24 14:44 Respiratory Rate 15 06/05/24 14:44 Blood Pressure 151/91 H 06/05/24 14:44 Pulse Oximetry 100 06/05/24 14:44 Oxygen Delivery Room Air 06/05/24 14:44 <Jia Jalloh PA-C - Last Filed: 06/05/24 17:48> MDM - Female Genitourinary MDM Narrative Medical decision making narrative: Patient presents to the emergency department for urinary frequency. Reports she was recently started on Lasix by a electrician powerhouse. She is afebrile and nontoxic appearing. Urine without evidence of infection. test is negative. Patient was counseled her symptoms are likely just due to her new medication. Encouraged to follow up with her electrician powerhouse for further management of this. She was given warnings to return to the ER <Jia Jalloh PA-C - Last Filed: 06/05/24 17:48> Differential Diagnosis Differential diagnosis: Likely cystitis and other (medication side effect) <Jia Jalloh PA-C - Last Filed: 06/05/24 17:48> Lab Data Attestation: I reviewed the patient's lab results. <Jia Jalloh PA-C - Last Filed: 06/05/24 17:48> Labs: Lab Results 06/05/24 06/05/24 Range/Units 16:21 16:26 Urine Color Yellow (Yellow) Urine Appearance Clear (Clear) Urine pH 7.0 (5.0-9.0) Ur Specific [place] 1.003 (1.001-1.035) Urine Protein Negative (Negative) mg/dL Urine Glucose (UA) Negative (Negative) mg/dL Urine Ketones Negative (Negative) mg/dL Ur Blood (Man) Non-hemolyzed trace H (Negative) Urine Nitrate Negative (Negative) Urine Bilirubin Negative (Negative) Urine Urobilinogen 0.2 (<2.0) mg/dL Leukocyte Esterase Rfl Trace H (Negative) TAMMI/UL Urine RBC 0-2 (0-2) /hpf Urine WBC 0-5 (0-3) /hpf Ur Squamous Epith Cells Occasional (Few) /hpf Urine Bacteria None seen /hpf Urine Casts 0-2 POC Urine HCG, Qual Negative (Negative) <Linda Noriega APRN - Last Filed: 06/05/24 15:00> Lab Results 06/05/24 06/05/24 Range/Units 16:21 16:26 Urine Color Yellow (Yellow) Urine Appearance Clear (Clear) Urine pH 7.0 (5.0-9.0) Ur Specific [place] 1.003 (1.001-1.035) Urine Protein Negative (Negative) mg/dL Urine Glucose (UA) Negative (Negative) mg/dL Urine Ketones Negative (Negative) mg/dL Ur Blood (Man) Non-hemolyzed trace H (Negative) Urine Nitrate Negative (Negative) Urine Bilirubin Negative (Negative) Urine Urobilinogen 0.2 (<2.0) mg/dL Leukocyte Esterase Rfl Trace H (Negative) TAMMI/UL Urine RBC 0-2 (0-2) /hpf Urine WBC 0-5 (0-3) /hpf Ur Squamous Epith Cells Occasional (Few) /hpf Urine Bacteria None seen /hpf Urine Casts 0-2 POC Urine HCG, Qual Negative (Negative) <Jia Jalloh PA-C - Last Filed: 06/05/24 17:48> Critical Care Time Critical Care Time Critical Care Time: No <Jia Jalloh PA-C - Last Filed: 06/05/24 17:48> Discharge Plan Discharge Clinical Impression: Urinary frequency <Linda Noriega APRN - Last Filed: 06/05/24 15:00> Patient Disposition: Home, Self-Care <Linda Noriega APRN - Last Filed: 06/05/24 15:00> Condition: Stable <Linda Noriega APRN - Last Filed: 06/05/24 15:00> Instructions: Furosemide (By mouth) <Linda Noriega APRN - Last Filed: 06/05/24 15:00> Additional Instructions: Return to the ER if you experience fever, abdominal pain with nausea and vomiting, you are unable to keep down liquids or solids, pain or burning with urination, blood in the urine or any other symptoms that are concerning to you Follow up with your Academic Assistant for further management of your Lasix (water pill). Your urinary frequency is due to this medication <Linda Noriega APRN - Last Filed: 06/05/24 15:00> Prescriptions: No Action chlorhexidine gluconate [Peridex] 0.12 % mouthwash 15 ml buccal BID sodium chloride [[place] Nasal] 0.65 % aerosol,spray 1 spray intranasal BID PRN risperidone 0.5 mg tablet 0.5 mg PO BID Qty: 60 0RF trazodone 50 mg tablet 50 mg PO QHS Qty: 30 0RF penicillin V potassium 500 mg tablet 500 mg PO TID Qty: 30 0RF ibuprofen [IBU] 600 mg tablet 600 mg PO Q6H PRN (Reason: pain) Qty: 20 0RF nitrofurantoin monohyd/m-cryst [Macrobid] 100 mg capsule 100 mg PO Q12H 7 Days Qty: 14 0RF Rx Instructions: must administer with a meal/food naproxen 500 mg tablet 500 mg PO BID PRN (Reason: pain) Qty: 20 0RF cholecalciferol (vitamin D3) 1,250 mcg (50,000 unit) capsule 1,250 mcg PO WEEKLY Qty: 14 1RF albuterol sulfate 90 mcg/actuation HFA aerosol inhaler 1 inh inhalation Q4H PRN (Reason: shortness of breath or wheezing) Qty: 6.7 1RF <ERIC See Last Filed: 06/05/24 15:00> Follow-up/Referrals: Magalis Palm RN [Primary Care Provider] - <Linda Noriega APRN - Last Filed: 06/05/24 15:00>
[2024-06-05 16:28] LABS: BEDSIDEPREGUCG Negative (Negative)
[2024-06-05 16:42] LABS: Add Urine Microscopic? YES; Appearance Urine Clear (Clear); Bacteria Urine None Seen /hpf; Bilirubin Urine Negative (Negative); Blood Urine Non-Hemolyzed Trace (Negative); Color Urine Yellow (Yellow); Glucose Urine UA Negative (Negative); Ketones Urine Negative (Negative); Leukocyte Esterase Ur Trace LEU/UL (Negative); Nitrate Urine Negative (Negative); Non Pathogenic Casts 0-2; Protein Urine Negative (Negative); RBC Urine 0-2 /hpf (0-2); Specific Grav Ur 1.003 (1.001-1.035); Squamous Epithelial Cell Urine Occasional /hpf (Few); Urobilinogen Urine 0.2 mg/dL (<2.0); WBC Urine 0-5 /hpf (0-3)
[2024-06-05 18:56] VITALS: BP 148/88; PULSE 88; RESP 18; O2SAT 99
== END 2024-06-05 19:01 | disposition home or self-care (01) ==
PROVIDERS: Emergency Medicine; Registered Nurse; Emergency Provider Physician Assistant
DX: R35.89 Other polyuria (principal); F41.9 Anxiety disorder, unspecified; F32.A Depression, unspecified; J45.909 Unspecified asthma, uncomplicated
CPT/HCPCS: 81001; 81025; 99283

== ENCOUNTER 2024-06-14 20:51 | Emergency (ER) | payer OTHER, SELFPAY ==
[2024-06-14 21:13] VITALS: BP 159/114; PULSE 82; RESP 16; TEMP 36.7; O2SAT 100
--- NOTE | 2024-06-14 21:26 | ED_ITS ---
HPI - Anxiety General Chief Complaint: Anxiety Stated Complaint: anxiety, peed pants in triage Time Seen by Provider: 06/14/24 21:00 Source: patient Mode of arrival: ambulatory Limitations: other (poor historian) History of Present Illness HPI narrative: This is a 29 year old female that presents to the ER for anxiety ongoing today. No other complaints. Reports she is currently seeing a behavioral health specialist. Takes Fluoxetine daily. She has no thoughts of harming herself or anyone else. Related Data Home Medications Medication Instructions Recorded Confirmed chlorhexidine gluconate 0.12 % 15 ml buccal BID 07/02/21 07/02/21 mouthwash (Peridex) sodium chloride 0.65 % nasal spray 1 spray intranasal BID PRN 07/02/21 07/02/21 aerosol ([place] Nasal) Allergies Allergy/AdvReac Type Severity Reaction Status Date / Time No Known Allergies Allergy Verified 06/14/24 20:52 Review of Systems Review of Systems: CONSTITUTIONAL: Denies fever PSYCHIATRIC: Reports anxiety. Denies depression. All systems reviewed & are unremarkable except as noted in HPI and below PMFSH Past Medical History Medical History Anxiety and depression Asthma Social History Social History Smoking status: Former smoker Tobacco type: cigarettes Alcohol intake: current Substance use: never Substance use type: does not use Living arrangements: with family Occupation/Education: unemployed Gender identity (if verbalized by the patient): Female Exam Narrative: GENERAL: Well-appearing, obese, and in no acute distress. HEAD: Normocephalic, atraumatic. EYES: EOMI. CHEST: Clear to auscultation. No respiratory distress. No wheezes rales or rhonchi HEART: Regular rate and rhythm. No murmur heard. Normal peripheral pulses. EXTREMITIES: Normal range of motion. No edema. SKIN: Warm, dry, no rash. NEURO: No focal deficits. Alert and oriented x3. PSYCH: Normal mood and affect Course Course Emergency Course: patient with improvement after dose of ativan Vital Signs Vital signs: Vital Signs Temperature 98.1 F 06/14/24 21:13 Pulse Rate 82 06/14/24 21:13 Respiratory Rate 16 06/14/24 21:13 Blood Pressure 159/114 H 06/14/24 21:13 Pulse Oximetry 100 06/14/24 21:13 Oxygen Delivery Room Air 06/14/24 21:13 Temperature 98.1 F 06/14/24 21:13 Pulse Rate 82 06/14/24 21:13 Respiratory Rate 16 06/14/24 21:13 Blood Pressure 148/94 H 06/14/24 21:31 Pulse Oximetry 100 06/14/24 21:13 Oxygen Delivery Room Air 06/14/24 21:13 MDM - Anxiety MDM Narrative Medical decision making narrative: Patient presents to the emergency department for anxiety today. Given a dose of Ativan with improvement. She has no thoughts of hurting herself or anyone else. No other focal complaints. Instructed to have further follow-up with her behavior health specialist. She was given warnings to return to the ER Differential Diagnosis Differential diagnosis: Likely hyperventilation, panic disorder and acute anxiety Critical Care Time Critical Care Time Critical Care Time: No Discharge Plan Discharge Clinical Impression: Acute anxiety Patient Disposition: Home, Self-Care Condition: Improved Instructions: Anxiety (ED) Additional Instructions: Return to the emergency department if you experience fever, chest pain, shortness of breath, thoughts of harming yourself or anyone else, or any other symptoms that are concerning to you. Follow up with your behavior health specialist Prescriptions: No Action chlorhexidine gluconate [Peridex] 0.12 % mouthwash 15 ml buccal BID sodium chloride [[place] Nasal] 0.65 % aerosol,spray 1 spray intranasal BID PRN risperidone 0.5 mg tablet 0.5 mg PO BID Qty: 60 0RF trazodone 50 mg tablet 50 mg PO QHS Qty: 30 0RF penicillin V potassium 500 mg tablet 500 mg PO TID Qty: 30 0RF ibuprofen [IBU] 600 mg tablet 600 mg PO Q6H PRN (Reason: pain) Qty: 20 0RF nitrofurantoin monohyd/m-cryst [Macrobid] 100 mg capsule 100 mg PO Q12H 7 Days Qty: 14 0RF Rx Instructions: must administer with a meal/food naproxen 500 mg tablet 500 mg PO BID PRN (Reason: pain) Qty: 20 0RF famotidine 20 mg tablet 20 mg PO DAILY Qty: 20 0RF ondansetron 4 mg tablet,disintegrating 4 mg PO Q8H Qty: 14 0RF cholecalciferol (vitamin D3) 1,250 mcg (50,000 unit) capsule 1,250 mcg PO WEEKLY Qty: 14 1RF albuterol sulfate 90 mcg/actuation HFA aerosol inhaler 1 inh inhalation Q4H PRN (Reason: shortness of breath or wheezing) Qty: 6.7 1RF Follow-up/Referrals: Magalis Palm RN [Primary Care Provider] -
[2024-06-14 21:31] VITALS: BP 148/94
[2024-06-14] MEDS: LORazepam (*CRX) 0.5 MG TABLET PO (21:33)
[2024-06-14 23:03] VITALS: PULSE 63; RESP 13; O2SAT 99
== END 2024-06-14 22:57 | disposition home or self-care (01) ==
PROVIDERS: Emergency Provider Physician Assistant
DX: F41.9 Anxiety disorder, unspecified (principal); F32.A Depression, unspecified; Z79.899 Other long term (current) drug therapy; Z87.891 Personal history of nicotine dependence
CPT/HCPCS: 99283; A9270

== ENCOUNTER 2024-06-26 22:26 | Emergency (ER) | payer OTHER, SELFPAY ==
[2024-06-26 22:44] VITALS: BP 134/98; PULSE 95; RESP 20; TEMP 36.8; O2SAT 97
[2024-06-26 23:01] LABS: Basophils Percent Auto 0.4 % (0.2-1.2); Eosinophils Absolute Auto 0.1 K/mm3 (0-0.3); Eosinophils Percent Auto 2.1 % (0-4.4); Hematocrit 37.5 % (37.0-47.0); Hemoglobin 12.1 g/dL (12.0-15.0); Immature Granulocyte Absolute 0.02 K/mm3 (0.00-0.031); Immature Granulocyte Percent A 0.3 % (0-0.5); Lymphocytes Absolute Auto 2.46 K/mm3 (0.9-3.2); Lymphocytes Percent Auto 36.3 % (18.3-44.2); Mean Corpuscular HGB Conc 32.3 g/dl (32-36); Mean Corpuscular Hemoglobin 26.5 pg (26-34); Mean Corpuscular Volume 82.1 fl (80-100); Mean Platelet Volume 10.8 fl (7.4-10.4); Monocytes Absolute Auto 0.5 K/mm3 (0.1-0.6); Monocytes Percent Auto 6.6 % (2.6-8.5); Neutrophils Absolute Auto 3.7 K/mm3 (1.3-6.7); Neutrophils Percent Auto 54.3 % (45.5-73.1); Platelet Count Result 244 k/mm3 (150-375); Red Blood Count 4.57 M/mm3 (4.2-5.4); Red Cell Distribution Width 16.7 % (11.5-14.5); White Blood Count 6.8 K/mm3 (4.5-10.0)
[2024-06-26 23:15] LABS: Alanine Aminotransferase 22 U/L (6-35); Albumin Level 4.5 g/dL (3.5-5.1); Alkaline Phosphatase 69 U/L (38-126); Anion Gap 4 mmol/L (4-12); Aspartate Amino Transferase 34 U/L (14-36); Bilirubin,Total 0.3 mg/dL (0.2-1.3); Blood Urea Nitrogen 8 mg/dL (7-17); Calcium 9.7 mg/dL (8.4-10.2); Carbon Dioxide 30 mmol/L (22-30); Chloride 105 mmol/L (98-107); Estimated Glomerular Filt Rate > 60; Glucose 93 mg/dL (65-110); Potassium 3.9 mmol/L (3.4-5.0); Sodium 139 mmol/L (137-145)
[2024-06-26 23:16] LABS: Ethanol < 10 mg/dL (<10)
--- NOTE | 2024-06-26 23:19 | ED_ITS ---
HPI - Psych General Chief Complaint: Psychiatric Symptoms <Regina Dodd PA-C - Last Filed: 06/27/24 02:53> Stated Complaint: ANXIETY DEPRESSION, SENT BY [facility] <Regina Dodd PA-C - Last Filed: 06/27/24 02:53> Time Seen by Provider: 06/26/24 22:55 <Regina Dodd PA-C - Last Filed: 06/27/24 02:53> History of Present Illness HPI Narrative: 29-year-old female with history of bipolar disorder, asthma, anxiety depression presents to the ED via EMS from home for anxiety. [facility] and advised to come to the ED for evaluation involuntary placement at a psychiatric facility for acute psychosis. The patient denies thoughts of harming herself or other people. She denies drug or alcohol use. States she does feels anxious. Unable to identify source of anxiety. She denies auditory or visual hallucinations. Per nursing staff, EMS is reported that the patient is having difficulty care for herself. <Regina Dodd PA-C - Last Filed: 06/27/24 02:53> Related Data Home Medications: Home Medications Medication Instructions Recorded Confirmed chlorhexidine gluconate 0.12 % 15 ml buccal BID 07/02/21 07/02/21 mouthwash (Peridex) sodium chloride 0.65 % nasal spray 1 spray intranasal BID PRN 07/02/21 07/02/21 aerosol ([place] Nasal) <Regina Dodd PA-C - Last Filed: 06/27/24 02:53> Allergies/Adverse Reactions: Allergies Allergy/AdvReac Type Severity Reaction Status Date / Time No Known Allergies Allergy Verified 06/14/24 20:52 <Regina Dodd PA-C - Last Filed: 06/27/24 02:53> Review of Systems Review of Systems: All systems reviewed & are unremarkable except as noted in HPI and below <Regina Dodd PA-C - Last Filed: 06/27/24 02:53> PMFSH Past Medical History Medical History: Medical History Anxiety and depression Asthma <ZAYNAB Thomas Last Filed: 06/27/24 02:53> Social History Social History: Social History Smoking status: Former smoker Tobacco type: cigarettes Alcohol intake: current Substance use: never Substance use type: does not use Living arrangements: with family Occupation/Education: unemployed Gender identity (if verbalized by the patient): Female <Regina Dodd PA-C - Last Filed: 06/27/24 02:53> Exam Narrative: GENERAL: Well-appearing, well-nourished, and in no acute distress. HEAD: Normocephalic, atraumatic. EYES: EOMI. ENT: Nares clear, no rhinorrhea or epistaxis. Mucous membranes moist. NECK: Supple. CHEST: Clear to auscultation. No respiratory distress. HEART: Regular rate and rhythm. No murmur heard. Normal peripheral pulses. EXTREMITIES: Normal range of motion. No edema. SKIN: Warm, dry, no rash. NEURO: No focal deficits. Alert and oriented x3. Bizarre behavior. Denies SI or HI. Mildly anxious. Operative. <Regina Dodd PA-C - Last Filed: 06/27/24 02:53> Course EXECUTIVE MARKETING ASSISTANT/PA Physician Supervision For this patient encounter, I reviewed the EXECUTIVE MARKETING ASSISTANT or PA documentation, treatment plan, and medical decision making and had [id number] time with this patient. I performed all aspects of the MDM as documented. <Ninfa Small MD - Last Filed: 06/27/24 06:01> Vital Signs Vital signs: Vital Signs Temperature 98.3 F 06/26/24 22:44 Pulse Rate 95 06/26/24 22:44 Respiratory Rate 20 06/26/24 22:44 Blood Pressure 134/98 H 06/26/24 22:44 Pulse Oximetry 97 06/26/24 22:44 Temperature 98.3 F 06/26/24 22:44 Pulse Rate 95 06/26/24 22:44 Respiratory Rate 20 06/26/24 22:44 Blood Pressure 134/98 H 06/26/24 22:44 Pulse Oximetry 97 06/26/24 22:44 <Regina Dodd PA-C - Last Filed: 06/27/24 02:53> Vital Signs Temperature 98.3 F 06/26/24 22:44 Pulse Rate 95 06/26/24 22:44 Respiratory Rate 20 06/26/24 22:44 Blood Pressure 134/98 H 06/26/24 22:44 Pulse Oximetry 97 06/26/24 22:44 Temperature 98.3 F 06/26/24 22:44 Pulse Rate 95 06/26/24 22:44 Respiratory Rate 20 06/26/24 22:44 Blood Pressure 134/98 H 06/26/24 22:44 Pulse Oximetry 97 06/26/24 22:44 <Ninfa Small MD - Last Filed: 06/27/24 06:01> MDM - Psych MDM Narrative Medical decision making narrative: 29-year-old female with history of anxiety, depression, bipolar disorder presents to the ED via EMS from home for anxiety. Patient is evaluated by [facility] [place] today and was advised to come to the ED for evaluation and voluntary inpatient admission for acute psychosis. Upon evaluation patient does have his are behavior but is not responding to auditory or visual musa llucinations. She denies SI or HI. CBC and chemistries are unremarkable. UA without UTI. negative. UDS and ETOH negative. COVID, flu RSV negative. UDS and ETOH negative. TSH within normal limits. Patient medically cleared for crisis consult. Pending crisis consult at time of sign-out to Dr. Small. <Regina Dodd PA-C - Last Filed: 06/27/24 02:53> 29-year-old female with history of anxiety, depression, bipolar disorder presents to the ED via EMS from home for anxiety. Patient is evaluated by [facility] at home today and was advised to come to the ED for evaluation and voluntary inpatient admission for acute psychosis. Upon evaluation patient does have his are behavior but is not responding to auditory or visual hallucinations. She denies SI or HI. CBC and chemistries are unremarkable. UA without UTI. negative. UDS and ETOH negative. COVID, flu RSV negative. UDS and ETOH negative. TSH within normal limits. Patient medically cleared for crisis consult. Geovanny: Patient signed out to me pending crisis evaluation. Patient was evaluated by crisis and currently pending placement. Patient is agreeable for voluntary inpatient psychiatric admission. <Ninfa Small MD - Last Filed: 06/27/24 06:01> Lab Data Result diagrams: 06/26/24 22:55 06/26/24 22:55 <Regina Dodd PA-C - Last Filed: 06/27/24 02:53> Labs: Lab Results 06/26/24 06/26/24 06/26/24 Range/Units 22:55 23:33 23:39 WBC 6.8 (4.5-10.0) K/mm3 RBC 4.57 (4.2-5.4) M/mm3 Hgb 12.1 (12.0-15.0) g/dL Hct 37.5 (37.0-47.0) % MCV 82.1 (80-100) fl MCH 26.5 (26-34) pg MCHC 32.3 (32-36) g/dl RDW 16.7 H (11.5-14.5) % Plt Count 244 (150-375) k/mm3 MPV 10.8 H (7.4-10.4) fl Immature Gran % (Auto) 0.3 (0-0.5) % Neut % (Auto) 54.3 (45.5-73.1) % Lymph % (Auto) 36.3 (18.3-44.2) % [place] % (Auto) 6.6 (2.6-8.5) % Eos % (Auto) 2.1 (0-4.4) % Baso % (Auto) 0.4 (0.2-1.2) % Lymph # (Auto) 2.46 (0.9-3.2) K/mm3 [place] # (Auto) 0.5 (0.1-0.6) K/mm3 Eos # (Auto) 0.1 (0-0.3) K/mm3 Baso # (Auto) 0.0 (0.0-0.1) K/mm3 Abs Immat Gran (auto) 0.02 (0.00-0.031) K/mm3 Absolute Neuts (auto) 3.7 (1.3-6.7) K/mm3 Absolute Nucleated RBC 0.000 (0.0-0.012) K/mm3 Nucleated RBC % 0.0 (0.0-0.2) % Sodium 139 (137-145) mmol/L Potassium 3.9 (3.4-5.0) mmol/L Chloride 105 (98-107) mmol/L Carbon Dioxide 30 (22-30) mmol/L Anion Gap 4 (4-12) mmol/L BUN 8 (7-17) mg/dL Creatinine 0.70 (0.7-1.0) mg/dL Estim Creat Clear Calc Not Reportable Estimated GFR > 60 (59 - ) Glucose 93 (65-110) mg/dL Calcium 9.7 (8.4-10.2) mg/dL Total Bilirubin 0.3 (0.2-1.3) mg/dL AST 34 (14-36) U/L ALT 22 (6-35) U/L Alkaline Phosphatase 69 (38-126) U/L Total Protein 9.0 H (6.3-8.2) g/dL Albumin 4.5 (3.5-5.1) g/dL TSH (Reflex) 3.770 (0.465-4.68) uIU/mL Urine Color Yellow (Yellow) Urine Appearance Cloudy H (Clear) Urine pH 5.5 (5.0-9.0) Ur Specific Jameson 1.031 (1.001-1.035) Urine Protein Trace (Negative) mg/dL Urine Glucose (UA) Negative (Negative) mg/dL Urine Ketones Trace H (Negative) mg/dL Ur Blood (Man) Negative (Negative) Urine Nitrate Negative (Negative) Urine Bilirubin Negative (Negative) Urine Urobilinogen 1.0 (<2.0) mg/dL Leukocyte Esterase Rfl Negative (Negative) TAMMI/UL Urine RBC 0-2 (0-2) /hpf Urine WBC 0-5 (0-3) /hpf Ur Squamous Epith Cells Moderate (Few) /hpf Urine Bacteria Rare /hpf Urine Casts 0-2 POC Urine HCG, Qual Negative (Negative) Urine Opiates Screen Negative (Negative) Urine Methadone Screen Negative (Negative) Ur Barbiturates Screen Negative (Negative) Ur Phencyclidine Scrn Negative (Negative) Ur Amphetamine Screen Negative (Negative) U Benzodiazepines Scrn Negative (Negative) Urine Cocaine Screen Negative (Negative) U Cannabinoids Screen Negative (Negative) Ethyl Alcohol < 10 (<10) mg/dL Influenza A (RT-PCR) Negative (Negative) Influenza B (RT-PCR) Negative (Negative) RSV (RT-PCR) Negative (Negative) SARS-CoV-2 RNA (RT-PCR) Negative (Negative) <Regina Dodd PA-C - Last Filed: 06/27/24 02:53> Lab Results 06/26/24 06/26/24 06/26/24 Range/Units 22:55 23:33 23:39 WBC 6.8 (4.5-10.0) K/mm3 RBC 4.57 (4.2-5.4) M/mm3 Hgb 12.1 (12.0-15.0) g/dL Hct 37.5 (37.0-47.0) % MCV 82.1 (80-100) fl MCH 26.5 (26-34) pg MCHC 32.3 (32-36) g/dl RDW 16.7 H (11.5-14.5) % Plt Count 244 (150-375) k/mm3 MPV 10.8 H (7.4-10.4) fl Immature Gran % (Auto) 0.3 (0-0.5) % Neut % (Auto) 54.3 (45.5-73.1) % Lymph % (Auto) 36.3 (18.3-44.2) % [place] % (Auto) 6.6 (2.6-8.5) % Eos % (Auto) 2.1 (0-4.4) % Baso % (Auto) 0.4 (0.2-1.2) % Lymph # (Auto) 2.46 (0.9-3.2) K/mm3 [place] # (Auto) 0.5 (0.1-0.6) K/mm3 Eos # (Auto) 0.1 (0-0.3) K/mm3 Baso # (Auto) 0.0 (0.0-0.1) K/mm3 Abs Immat Gran (auto) 0.02 (0.00-0.031) K/mm3 Absolute Neuts (auto) 3.7 (1.3-6.7) K/mm3 Absolute Nucleated RBC 0.000 (0.0-0.012) K/mm3 Nucleated RBC % 0.0 (0.0-0.2) % Sodium 139 (137-145) mmol/L Potassium 3.9 (3.4-5.0) mmol/L Chloride 105 (98-107) mmol/L Carbon Dioxide 30 (22-30) mmol/L Anion Gap 4 (4-12) mmol/L BUN 8 (7-17) mg/dL Creatinine 0.70 (0.7-1.0) mg/dL Estim Creat Clear Calc Not Reportable Estimated GFR > 60 (59 - ) Glucose 93 (65-110) mg/dL Calcium 9.7 (8.4-10.2) mg/dL Total Bilirubin 0.3 (0.2-1.3) mg/dL AST 34 (14-36) U/L ALT 22 (6-35) U/L Alkaline Phosphatase 69 (38-126) U/L Total Protein 9.0 H (6.3-8.2) g/dL Albumin 4.5 (3.5-5.1) g/dL TSH (Reflex) 3.770 (0.465-4.68) uIU/mL Urine Color Yellow (Yellow) Urine Appearance Cloudy H (Clear) Urine pH 5.5 (5.0-9.0) Ur Specific Jameson 1.031 (1.001-1.035) Urine Protein Trace (Negative) mg/dL Urine Glucose (UA) Negative (Negative) mg/dL Urine Ketones Trace H (Negative) mg/dL Ur Blood (Man) Negative (Negative) Urine Nitrate Negative (Negative) Urine Bilirubin Negative (Negative) Urine Urobilinogen 1.0 (<2.0) mg/dL Leukocyte Esterase Rfl Negative (Negative) TAMMI/UL Urine RBC 0-2 (0-2) /hpf Urine WBC 0-5 (0-3) /hpf Ur Squamous Epith Cells Moderate (Few) /hpf Urine Bacteria Rare /hpf Urine Casts 0-2 POC Urine HCG, Qual Negative (Negative) Urine Opiates Screen Negative (Negative) Urine Methadone Screen Negative (Negative) Ur Barbiturates Screen Negative (Negative) Ur Phencyclidine Scrn Negative (Negative) Ur Amphetamine Screen Negative (Negative) U Benzodiazepines Scrn Negative (Negative) Urine Cocaine Screen Negative (Negative) U Cannabinoids Screen Negative (Negative) Ethyl Alcohol < 10 (<10) mg/dL Influenza A (RT-PCR) Negative (Negative) Influenza B (RT-PCR) Negative (Negative) RSV (RT-PCR) Negative (Negative) SARS-CoV-2 RNA (RT-PCR) Negative (Negative) <Ninfa Small MD - Last Filed: 06/27/24 06:01> Discharge Plan Discharge Clinical Impression: Anxiety and depression <Regina Dodd PA-C - Last Filed: 06/27/24 02:53> Patient Disposition: Psychiatric Hosp <Regina Dodd PA-C - Last Filed: 06/27/24 02:53> Condition: Serious <ZAYNAB Thomas Last Filed: 06/27/24 02:53> Prescriptions: No Action chlorhexidine gluconate [Peridex] 0.12 % mouthwash 15 ml buccal BID sodium chloride [[place] Nasal] 0.65 % aerosol,spray 1 spray intranasal BID PRN risperidone 0.5 mg tablet 0.5 mg PO BID Qty: 60 0RF trazodone 50 mg tablet 50 mg PO QHS Qty: 30 0RF penicillin V potassium 500 mg tablet 500 mg PO TID Qty: 30 0RF ibuprofen [IBU] 600 mg tablet 600 mg PO Q6H PRN (Reason: pain) Qty: 20 0RF nitrofurantoin monohyd/m-cryst [Macrobid] 100 mg capsule 100 mg PO Q12H 7 Days Qty: 14 0RF Rx Instructions: must administer with a meal/food naproxen 500 mg tablet 500 mg PO BID PRN (Reason: pain) Qty: 20 0RF famotidine 20 mg tablet 20 mg PO DAILY Qty: 20 0RF ondansetron 4 mg tablet,disintegrating 4 mg PO Q8H Qty: 14 0RF cholecalciferol (vitamin D3) 1,250 mcg (50,000 unit) capsule 1,250 mcg PO WEEKLY Qty: 14 1RF albuterol sulfate 90 mcg/actuation HFA aerosol inhaler 1 inh inhalation Q4H PRN (Reason: shortness of breath or wheezing) Qty: 6.7 1RF <Regina Dodd PA-C - Last Filed: 06/27/24 02:53> Follow-up/Referrals: Magalis Palm RN [Primary Care Provider] - <Regina Dodd PA-C - Last Filed: 06/27/24 02:53>
[2024-06-26] MEDS: hydrOXYzine HCL 25 MG TABLET PO (23:30)
[2024-06-26 23:41] LABS: BEDSIDEPREGUCG Negative (Negative)
[2024-06-27 00:19] LABS: Add Urine Microscopic? YES; Appearance Urine Cloudy (Clear); Bacteria Urine Rare /hpf; Bilirubin Urine Negative (Negative); Blood Urine Negative (Negative); Color Urine Yellow (Yellow); Glucose Urine UA Negative (Negative); Ketones Urine Trace mg/dL (Negative); Leukocyte Esterase Ur Negative LEU/UL (Negative); Nitrate Urine Negative (Negative); Non Pathogenic Casts 0-2; Protein Urine Trace mg/dL (Negative); RBC Urine 0-2 /hpf (0-2); Specific Grav Ur 1.031 (1.001-1.035); Squamous Epithelial Cell Urine Moderate /hpf (Few); WBC Urine 0-5 /hpf (0-3); pH Urine 5.5 (5.0-9.0)
--- NOTE | 2024-06-27 00:27 | PC.NURSE ---
Tanika, with [facility], called and left her number [phone]. Per Tanika patient was already screened before arrival to ED. Once patient is cleared medically call Tanika and she will start the process to have the patient placed.
[2024-06-27 00:30] LABS: Amphetamine Screen Urine Negative (Negative); Barbiturate Screen Urine Negative (Negative); Benzodiazepines Screen Urine Negative (Negative); Cannabinoid Screen Urine Negative (Negative); Cocaine Screen Urine Negative (Negative); Methadone Screen Urine Negative (Negative); Opiate Screen Urine Negative (Negative); Phencyclidine Screen Urine Negative (Negative)
--- NOTE | 2024-06-27 01:03 | PC.NURSE ---
Per EDP GISSELL Arellano the patient is medically cleared.
[2024-06-27 01:16] LABS: Influenza A QL RT-PCR Negative (Negative); Influenza B QL RT-PCR Negative (Negative); RSV RNA, RT-PCR Negative (Negative); SARS-CoV-2 RNA PCR Negative (Negative)
--- NOTE | 2024-06-27 01:22 | PC.NURSE ---
TONY FROM [facility] CALLED AND REQUESTED THAT THIS PT'S CHART BE FAXED TO [facility] AT .
--- NOTE | 2024-06-27 01:26 | PC.NURSE ---
Pt's chart and face sheet faxed to [facility] per crisis request.
--- NOTE | 2024-06-27 07:36 | PC.NURSE ---
Assumed care of pt. Pt sleeping with reg resp.
[2024-06-27 08:00] VITALS: BP 142/83; PULSE 81; RESP 18; TEMP 36.7; O2SAT 100
--- NOTE | 2024-06-27 09:25 | PC.NURSE ---
reg breakfast precautionary tray ordered
--- NOTE | 2024-06-27 09:32 | PC.NURSE ---
0930: Pt signed voluntary admission form. Denies question or concerns. Document faxed to [facility].
--- NOTE | 2024-06-27 10:49 | PC.NURSE ---
Pt spoke with Ariane at [facility] Intake. Breakfast tray & hygiene products given. Pt continues to deny S/I or H/I & remains cooperative with staff
--- NOTE | 2024-06-27 11:27 | PC.NURSE ---
RN spoke with Ariane from [facility] Intake. Ariane brooks has not received any documents that ER has faxed. RN reviewed documentation with Ariane & faxed documents again
--- NOTE | 2024-06-27 11:44 | PC.NURSE ---
Transition fax report states no repsonse on [facility] fax number. RN called Intake with [facility] spoke with Stephania. Different fax number received.
--- NOTE | 2024-06-27 12:17 | PC.NURSE ---
1150: Hyun Bazzi with [facility] called stating she has spoke with Ariane with [facility] Intake, who states she has not received fax. Ashley informed of the fax number given to RN by Stephania. Ashley states she will call [facility] to have their staff check the new fax number
--- NOTE | 2024-06-27 12:26 | PC.NURSE ---
Pearl Hall with [facility] called stating she has taken over for Ashley. [facility] states their fax machines were not functioning properly,now the problem has been fixed. RN faxed documents to both fax numbers.
--- NOTE | 2024-06-27 12:31 | PC.NURSE ---
Ariane with intake [facility] called stating they have not received faxed document. Ariane states they can not accept pt until documents recieved. RN asked for plan B, if their fax machines aren't working there needs to be another way for them to receive documents. Ariane states she will wait for a few minutes and call back
--- NOTE | 2024-06-27 12:40 | PC.NURSE ---
Recieved phone call from [facility] Ariane with Intake. Pt has been accepted by Dr. Serrato.
== END 2024-06-27 16:00 ==
PROVIDERS: Emergency Provider Emergency Medicine
DX: F41.9 Anxiety disorder, unspecified (principal); F32.A Depression, unspecified; Z11.52 Encounter for screening for COVID-19; J45.909 Unspecified asthma, uncomplicated; Z87.891 Personal history of nicotine dependence; Z79.02 Long term (current) use of antithrombotics/antiplatelets
CPT/HCPCS: 36415; 80053; 80307; 81001; 81025; 82077; 84443; 85025; 87637; 99285; A9270

== ENCOUNTER 2024-07-11 00:02 | Emergency (ER) | payer OTHER, SELFPAY ==
[2024-07-11 00:21] VITALS: BP 145/104; PULSE 98; RESP 15; TEMP 36.2; O2SAT 99
--- NOTE | 2024-07-11 06:16 | PC.NURSE ---
Pt was picked up by her aunt.
== END 2024-07-11 06:16 | disposition left against medical advice (07) ==
DX: Z59.00 Homelessness unspecified (principal)
CPT/HCPCS: 99199

== ENCOUNTER 2024-11-05 00:08 | Emergency (ER) | payer OTHER, SELFPAY ==
[2024-11-05 00:17] VITALS: BP 125/73; PULSE 53; RESP 18; O2SAT 100
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
--- OUTSIDE RECORDS SUMMARY | 2024-11-05 00:24 | XMS_ITS | Clinical Summary ---
Author Organization [facility] Address [address] [place] [address] Care Team Providers Care Door Clamp Operator Name Role Phone Magalis Palm SUEDE CLEANER Primary Care Provider Carmen Jacome SUEDE CLEANER Unavailable [phone] Allergies No known active allergies Medications buPROPion XL (WELLBUTRIN XL) 150 mg 24 hr tablet 4 Active FeroSuL 325 mg (65 mg iron) tablet Take 1 tablet (325 mg total) by mouth daily 4 Active FLUoxetine (PROzac) 20 mg capsule 4 Active nystatin cream APPLY TO THE AFFECTED AREA(S) TWICE DAILY FOR ONE WEEK 4 Active terconazole (TERAZOL 3) 0.8 % vaginal cream APPLY 1 APPLICATORFUL VAGINALLY ONCE DAILY AT BEDTIME FOR 3 DAYS 4 Active nitrofurantoin monohydrate (MACROBID) 100 mg capsuleIndicati ons:Urinary tract infection in female Take 1 capsule (100 mg total) by mouth 2 (two) times a day Antibiotic to treat urinary tract infection. Collaborating physician Reynaldo Danielle MD 10 capsule 4 Active docusate calcium (COLACE) 240 mg capsuleIndicati ons:constipatio n Take 1 capsule (240 mg total) by mouth 2 (two) times a day Take as directed to help bowels move. Collaborating physician Reynaldo Danielle MD 20 capsule 1 4 Active Active Problems Problem Noted Date Diagnosed Date Urinary tract infection in female 04/25/2024 Constipation 04/25/2024 Medical History Medical History Date Comments Diabetes mellitus (HCC) Asthma Depression Ovarian cyst Social History Tobacco Use Types Packs/Day Years Used Date Smoking Tobacco: Never Passive Smoke Exposure: Current Smokeless Tobacco: Never Tobacco Cessation:Counseling Given: Not Answered Alcohol Use Standard Drinks/Week Comments Not Currently 0 (1 standard drink = 0.6 oz pur e alcohol) AUDIT-C Answer Date Recorded Q1: How often do you have a drink containing alc ohol? Monthly or less 03/21/2024 Q2: How many drinks containi ng alcohol do you have on a typical day when you are drinking? 1 or 2 03/21/2024 Q3: How often do you have si x or more drinks on one occasion? Never 03/21/2024 Personal Safety Answer Date Recorded Have you ever been in or are you currently in a harmful physical or emotional relationship or is someone making you feel afraid or unsafe? 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 Gender Identity Not on file Sexual Orientation Not on file Obstetrics History Para Term AB IAB SAB Ectopic Multiple Livin g Live Births 0 0 0 0 0 0 0 0 0 0 0 Last Filed Vital Signs Vital Sign Reading Time Taken Comments Blood Pressure 140/89 04/25/2024 4:27 PM CDT Pulse 74 04/25/2024 4:27 PM CDT Temperature 36.4 C (97.6 F) 04/25/2024 12:24 PM CDT Respiratory Rate 16 04/25/2024 4:27 PM CDT Oxygen Saturation 96% 04/25/2024 4:27 PM CDT Inhaled Oxygen Concentration - - Weight 137.9 kg (304 lb) 04/25/2024 12:24 PM CDT Height 157.5 cm (5' 2 ) 04/25/2024 12:24 PM CDT Body Mass Index 55.6 04/25/2024 12:24 PM CDT Plan of Treatment Health Maintenance Due Date Last Done Comments Cervical Cancer Screening 1995 Depression Screening 1993 Hepatitis C Screening 1995 HPV Vaccines (2 - 3-dose series) 05/18/2008 04/20/2008 Regular Well Visit/Exam 18-64 2011 DTaP/Tdap/Td Vaccine (7 - Td or Tdap) 04/20/2018 04/20/2008, 05/12/1999, 12/08/1995, Additional history exists Influenza Vaccine (#1) 2024 07/30/2018 Hepatitis B Screening Completed 1995 , 1995, 1995 Varicella Vaccines Completed 04/20/2008, 03/06/2003 Pneumococcal vaccine <65 Aged Out No longer eligible based on patient's age to complete this topic Insurance [facility] Care Teams Door Clamp Operator Relationship Specialty Start Date End Date Magalis Palm NP [address] [facility] [address] [place] [address] PCP - General Nurse Practitioner 03/21/24 Carmen Jacome NP [address] [place] [address] [address] Nurse Practitioner Nurse Practitioner 03/21/24
--- OUTSIDE RECORDS SUMMARY | 2024-11-05 00:24 | XMS_ITS | Clinical Summary ---
Author Organization [facility] Address [address] [place] [address] Care Team Providers Care Software Project Engineer Name Role Phone Unavailable Primary Care Provider Unavailabl e Source Comments [facility],non-owned Affiliates and Associated Physician Practices is amultiple site organization consisting of ambulatory clinics and hospital sitesin [place], [place], [place] and [place]. This disclosure is being madepursuant to the Care Everywhere program and may not contain all information available regarding this patient. Last updated 18.[facility] Allergies No known active allergies Medications * Be aware that medications may not be up to date on this document. Alwaysverify current medications with the patient. Medication Sig Dispensed Refills Start Date End Date Status vitamin D3 (CHOLECALCIFEROL) 10 MCG (400 UNIT) tabletIndications:V itamin D Deficiency Take 50,000 Units by mouth every 7 days Patient takes on Fridays Reasons: Vitamin D Deficiency Active albuterol HFA (PROVENTIL; VENTOLIN; PROAIR) 108 (90 Base) MCG/ACT inhalerIndications: Asthma Inhale 2 puffs by mouth every 4 hours as needed for Shortness of Breath or Wheezing Reasons: Asthma Active traZODone (DESYREL) 50 MG tabletIndications:A nxiety Disorder,Insomnia Take 1 (one) tablet by mouth at bedtime Reasons: Anxiety Disorder, Trouble Sleeping 30 tablet 2 06/27/2021 Active risperiDONE (RISPERDAL) 0.5 MG tabletIndications:M ixed Bipolar Affective Disorder Take 1 (one) tablet by mouth 2 times daily Reasons: MIXED BIPOLAR AFFECTIVE DISORDER 60 tablet 2 06/27/2021 Active Active Problems Problem Noted Date Diagnosed Date Bipolar 1 disorder, mixed, severe 06/21/2021 Post-traumatic stress syndrome 06/21/2021 Suicidal ideation 06/20/2021 Social History Tobacco Use Types Packs/Day Years Used Date Smoking Tobacco: Never Smokeless Tobacco: Never Tobacco Cessation:Counseling Given: Yes Comments:nonsmoker Alcohol Use Standard Drinks/Week Comments Not Currently 0 (1 standard drink = 0.6 oz pur e alcohol) 0 AUDIT-C Answer Date Recorded Q1: How often do you have a drink containing alc ohol? Never 06/20/2021 Q2: How many drinks containi ng alcohol do you have on a typical day when you are drinking? 1 or 2 06/20/2021 Q3: How often do you have six or more drinks on one occasion? Never 06/20/2021 Sex and Gender Information Value Date Recorded Sex Assigned at Not on file Gender Identity Not on file Sexual Orientation Not on file Last Filed Vital Signs Vital Sign Reading Time Taken Comments Blood Pressure 108/54 06/27/2021 7:45 AM RELATIONSHIP COUNSELOR Pulse 111 06/27/2021 10:14 AM RELATIONSHIP COUNSELOR Temperature 36.8 C (98.3 F) 06/27/2021 7:45 AM RELATIONSHIP COUNSELOR Respiratory Rate 18 06/27/2021 10:14 AM RELATIONSHIP COUNSELOR Oxygen Saturation 99% 06/27/2021 10:14 AM RELATIONSHIP COUNSELOR Inhaled Oxygen Concentration - - Weight 123.4 kg (272 lb) 06/20/2021 3:10 PM RELATIONSHIP COUNSELOR Height 157.5 cm (5' 2 ) 06/20/2021 3:10 PM RELATIONSHIP COUNSELOR Body Mass Index 49.75 06/20/2021 3:10 PM RELATIONSHIP COUNSELOR Plan of Treatment Health Maintenance Due Date Last Done Comments PAP SMEAR 1993 HIV SCREENING 01/14/2008 HEPATITIS C SCREENING 01/09/2011 DTAP/TDAP/TD VACCINES (1 - Tdap) 01/14/2012 HEPATITIS B VACCINE (1 of 3 - 19+ 3-dose series) 01/14/2012 COVID-19 VACCINE ( - 2023-2 5 season) 2024 INFLUENZA VACCINE (#1) 2024 ZOSTER VACCINE (1 of 2) 2043 HIB VACCINE Aged Out No longer eligi ble based on patient's age to complete this topic HPV VACCINE Aged Out No longer eligi ble based on patient's age to complete this topic MENINGOCOCCAL (Group B) VACC INE SHARED DECISION-MAKING Aged Out No longer eligibl e based on patient's age to complete this topic MENINGOCOCCAL GROUPS A/C/Y/W VACCINE Aged Out No longer eligible b ased on patient's age to complete this topic PNEUMOCOCCAL VACCINE Aged Out No long er eligible based on patient's age to complete this topic Advance Directives * Full Code (Latest Code Status on File) Date Activated Date Inactivated Comments 06/20/2021 3:29 PM 06/27/2021 2:59 PM
--- OUTSIDE RECORDS SUMMARY | 2024-11-05 00:24 | XMS_ITS | Referral Summary ---
Author Organization [facility] Address [address] [place] [address] Care Team Providers Care Special Agent Fbi Name Role Phone Magalis Palm BOWSTRING MAKER Primary Care Provider Carmen Jacome BOWSTRING MAKER Unavailable [phone] Allergies No known active allergies Medications buPROPion [...] tract infection in female 04/25/2024 Constipation 04/25/2024 Social History Tobacco Use Types Packs/Day Years [...] on file Legal Sex Female 7:01 PM GAS ENGINE PERFORMANCE ENGINEER Gender Identity Not on file Sexual Orientation [...] 04/25/2024 12:24 PM CDT Plan of Treatment Not on file Insurance [facility]ETNA [facility] Care Teams Special Agent Fbi Relationship Specialty Start Date End Date Magalis Palm, PHILIP [address] [place] [address] DR PENNIE Kitchen [address] [address] PCP - General Nurse Practitioner 03/21/24 Carmen Jacome NP [address] [place] [address] [address] [place] [address] Nurse Practitioner Nurse Practitioner 03/21/24
--- OUTSIDE RECORDS SUMMARY | 2024-11-05 00:25 | XMS_ITS | Clinical Summary ---
Author Organization [facility] Address [address] [place] [address] Phone Care Team Providers Care Public Health Training Assistant Name Role Phone Magalis Palm APRN, WEATHERSTRIP MACHINE OPERATOR Primary Care Provider Hawa Rangel MD Unavailable Allergies No known active allergies Medications VITAMIN D-3 400 UNIT Tablet Take 400 Units by mouth daily. Active buPROPion (WELLBUTRIN) 150 MG XL tablet Take 150 mg by mouth daily. 4 Active FLUoxetine (PROzac) 20 MG Capsule 4 Active terconazole (TERAZOL 3) 0.8 % Cream APPLY 1 APPLICATORFUL VAGINALLY ONCE DAILY AT BEDTIME FOR 3 DAYS 4 Active furosemide (LASIX) 20 MG Tablet Take 1 Tablet by mouth daily. 90 Tablet 3 4 Active nitrofurantoin , monohydrate-ma crocrystal, (MACROBID) 100 MG Capsule Take 100 mg by mouth. 4 Active FeroSul 325 (65 Fe) MG Tablet Take 1 Tablet by mouth daily. 90 Tablet 1 5 Active famotidine (PEPCID) 20 MG Tablet Take 20 mg by mouth daily. 4 Active Active Problems Problem Noted Date Diagnosed Date ALFONSO (dyspnea on exertion) 04/21/2024 Lightheadedness 04/21/2024 Chest pain 04/21/2024 PCOS (polycystic ovarian syndrome) 03/10/2024 Anxiety and depression 03/10/2024 Morbid obesity 03/10/2024 Iron deficiency anemia 03/10/2024 Encounters Date Type Department Care Team Description 09/20/2024 10:15 AM HAND STONE POLISHER Office Visit [facility] [address] [place] [address] Marcelle Fonseca PAC Iron deficiency anemia, unspecified iron deficiency anemia type (Primary Dx) Discharge Disposition: Discharged to home or Selfcare 09/20/2024 Travel 09/13/2024 9:30 AM HAND STONE POLISHER Lab [facility] [address] [place] [address] Marcelle Fonseca PAC Iron deficiency anemia, unspecified iron deficiency anemia type Discharge Disposition: Discharged to home or Selfcare 09/13/2024 Travel 09/06/2024 Refill [facility] [address] [place] [address] Marcelle Fonseca PAC from Last 3 Months Family History Medical History Relation Name Comments Cancer Father Heart Attack Maternal Grandmother Anemia Mother Cancer Paternal Grandfather Relation Name Status Comments Father Alive Maternal Grandmother Alive Mother Alive Paternal Grandfather Social History Tobacco Use Types Packs/Day Years Used Date Smoking Tobacco: Former Cigarettes Q uit: 03/10/2023 Smokeless Tobacco: Never Tobacco Cessation:Counseling Given: Not Answered Alcohol Use Standard Drinks/Week Comments Yes 0 (1 standard drink = 0.6 oz pur e alcohol) Comments Unknown Sex and Gender Information Value Date Recorded Sex Assigned at Not on file Legal Sex Female 10:19 PM CDT Gender Identity Not on file Sexual Orientation Not on file Last Filed Vital Signs Vital Sign Reading Time Taken Comments Blood Pressure 123/77 09/20/2024 10:06 AM HAND STONE POLISHER Pulse 57 09/20/2024 10:06 AM HAND STONE POLISHER Temperature 36.6 C (97.8 F) 09/20/2024 10:06 AM HAND STONE POLISHER Respiratory Rate 18 09/20/2024 10:0 6 AM HAND STONE POLISHER Oxygen Saturation 98% 05/19/2024 1:01 PM CDT Inhaled Oxygen Concentration - - Weight 125.7 kg (277 lb 1.6 oz) 025 10:06 AM HAND STONE POLISHER Height 157.5 cm (5' 2 ) 09/20/2024 10:0 6 AM HAND STONE POLISHER Body Mass Index 50.68 09/20/2024 10:06 AM HAND STONE POLISHER Plan of Treatment Upcoming Encounters Date Type Department Care Team (Late st Contact Info) Description 03/14/2025 11:00 AM CDT Lab [facility] [address] [place] [address] Discharge Disposition: Discharged to home or Selfcare 03/23/2025 10:40 AM CDT Office Visit [facility] [address] [place] [address] Marcelle Fonseca Tanja, [facility] [address] [place] [address] Health Maintenance Due Date Last Done Comments Hepatitis C Virus (HCV) Screening 1993 Pap Smear 2014 Cervical Cancer Screening (CCS) 2023 HPV/Cotest 2023 Influenza Immunization (#1) 2024 07/30/2018 SARS-COV-2 Immunization ( season) 2024 Respiratory Syncytial Virus (RSV) Immunization (Adult) (1 - 1-dose 75+ series) 01/14/2068 Hepatitis B Immunization Completed 994, 1993, 1993 TdaP Immunization Completed 04/20/2008 Meningococcal Immunization (ACWY) Aged Out No longer eligible b ased on patient's age to complete this topic Pneumococcal Immunization Combined Aged Out No longer eligible b ased on patient's age to complete this topic Rotavirus Immunization Aged Out No lo nger eligible based on patient's age to complete this topic Procedures Procedure Name Priority Date/Time Associated Diagnosis Comments MANUAL DIFFERENTIAL Routine 09/13/2024 9 :39 AM HAND STONE POLISHER Iron deficiency anemia, unspecified iron deficiency anemia type CBC WITH AUTO DIFFERENTIAL Routine 09/13/2024 9:39 AM HAND STONE POLISHER Iron deficiency anemia, unspecified iron deficiency anemia type FREE KAPPA & LAMBDA LIGHT CHAINS SERUM Routine 09/13/2024 9:39 AM HAND STONE POLISHER Iron deficiency anemia, unspecified iron deficiency anemia type FOLIC ACID (FOLATE) Routine 09/13/2024 9 :39 AM HAND STONE POLISHER Iron deficiency anemia, unspecified iron deficiency anemia type IRON,TRANSFERN,CALC.T IBC,%SAT Routine 09/13/2024 9:39 AM HAND STONE POLISHER Iron deficiency anemia, unspecified iron deficiency anemia type FERRITIN Routine 09/13/2024 9:39 AM HAND STONE POLISHER Iron deficiency anemia, unspecified iron deficiency anemia type VITAMIN B12 Routine 09/13/2024 9:39 AM HAND STONE POLISHER Iron deficiency anemia, unspecified iron deficiency anemia type COMPLETE BLOOD COUNT (CBC) WITH DIFF Routine 09/13/2024 9:39 AM HAND STONE POLISHER Iron deficiency anemia, unspecified iron deficiency anemia type from Last 3 Months Results * IRON,TRANSFERN,CALC.TIBC,%SAT (09/13/2024 9:39 AM HAND STONE POLISHER) IRON 54 25 - 156 mcg/dL 09/13/2024 11:06 AM HAND STONE POLISHER [facility] TRANSFERRIN 235 180 - 382 mg/dL 09/13/2024 11:06 AM HAND STONE POLISHER [facility] TIBC, CALCULATED 294 265 - 497 mcg/dL 09/13/2024 11:06 AM HAND STONE POLISHER [facility] % SATURATION * 18 15 - 62 % 09/13/2024 11:06 AM HAND STONE POLISHER [facility] Blood Venipuncture / Unknown 09/13/2024 9:39 AM HAND STONE POLISHER 09/13/2024 9:39 AM HAND STONE POLISHER Marcelle Fonseca PAC CHEMISTRY ORDERABLES Lety l Result [facility] [address] [place] [address] * (ABNORMAL) MANUAL DIFFERENTIAL (09/13/2024 9:39 AM HAND STONE POLISHER) NEUTROPHILS % 58.0 47.0 - 73.0 % 09/13/2024 11:11 AM [facility] LYMPHOCYTES % 38.0 18.0 - 42.0 % 09/13/2024 11:11 AM [facility] MONOCYTES % 3.0(L) 4.0 - 12.0 % 09/13/2024 11:11 AM [facility] EOSINOPHILS % 1.0 0.0 - 5.0 % 09/13/2024 11:11 AM [facility] NEUTROPHILS ABSOLUTE 3.51 1.60 - 7.70 10(3)/[facility] 09/13/2024 11:11 AM [facility] LYMPHOCYTES ABSOLUTE 2.30 1.30 - 3.20 10(3)/[facility] 09/13/2024 11:11 AM [facility] MONOCYTES ABSOLUTE 0.18(L) 0.20 - 1.00 10(3)/[facility] 09/13/2024 11:11 AM [facility] EOSINOPHILS ABSOLUTE 0.06 0.00 - 0.40 10(3)/[facility] 09/13/2024 11:11 AM [facility] REACTIVE LYMPHOCYTES 9 09/13/2024 11:11 AM [facility] WBC MORPH STATUS Normal 09/13/19 11:11 AM [facility] RBC MORPH STATUS Normal 09/13/19 11:11 AM [facility] PLATELET STATUS Normal 11:11 AM [facility] Blood Venipuncture / Unknown 09/13/2024 9:39 AM HAND STONE POLISHER 09/13/2024 9:39 AM HAND STONE POLISHER us Marcelle Fonseca PAC HEMATOLOGY ORDERABLES Fin al Result [facility] [address] [place] [address] * (ABNORMAL) CBC WITH AUTO DIFFERENTIAL (09/13/2024 9:39 AM [facility]) WBC 6.05 4.00 - 12.00 10(3)/[facility] 09/13/2024 11:11 AM [facility] RBC 4.71 3.80 - 5.30 10(6)/[facility] 09/13/2024 11:11 AM [facility] HEMOGLOBIN (HGB) 12.6 12.0 - 15.8 g/dL 09/13/2024 11:11 AM [facility] HEMATOCRIT (HCT) 39.1 36.0 - 47.0 % 09/13/2024 11:11 AM [facility] MCV 83.0 82.0 - 96.0 fL 09/13/2024 11:11 AM [facility] MCH 26.8 26.0 - 34.0 pg 09/13/2024 11:11 AM [facility] MCHC 32.2 31.0 - 36.0 g/dL 09/13/2024 11:11 AM [facility] PLATELET COUNT 234 140 - 440 10(3)/[facility] 09/13/2024 11:11 AM [facility] RDW 17.8(H) 11.8 - 15.5 % 09/13/2024 11:11 AM [facility] MPV 12.8(H) 9.7 - 12.4 fL 09/13/2024 11:11 AM [facility] NRBC PER 100 WBC 0 09/13/2024 11:11 AM [facility] RESULTS ARE CONSISTENT WITH PERIPHERAL SMEAR REVIEW Yes 09/13/2024 11:11 AM [facility] Blood Venipuncture / Unknown 09/13/2024 9:39 AM HAND STONE POLISHER 09/13/2024 9:39 AM HAND STONE POLISHER [facility] HEMATOLOGY ORDERABLES Fin al Result [facility] [address] [place] [address] * (ABNORMAL) FREE KAPPA & LAMBDA LIGHT CHAINS SERUM (09/13/2024 9:39 AM HAND STONE POLISHER) Free [place] Lt Chn 38.14(H) 3.30 - 19.40 mg/L 09/14/2024 8:08 AM HAND STONE POLISHER [facility] Free Lambda Lt Chn 23.15 5.71 - 26.30 mg/L 09/14/2024 8:08 AM HAND STONE POLISHER [facility] free renetta blackwood ratio 1.65 0.26 - 1.65 09/14/2024 8:08 AM HAND STONE POLISHER [facility] Blood Venipuncture / Unknown 09/13/2024 9:39 AM HAND STONE POLISHER 09/13/2024 9:39 AM HAND STONE POLISHER [facility] PAC CHEMISTRY ORDERABLES Lety l Result [facility] [address] [place] [address], * VITAMIN B12 (09/13/2024 9:39 AM HAND STONE POLISHER) VITAMIN B12 627 213 - 816 pg/mL 09/13/2024 11:27 AM HAND STONE POLISHER [facility] Blood Venipuncture / Unknown 09/13/2024 9:39 AM HAND STONE POLISHER 09/13/2024 9:39 AM HAND STONE POLISHER [facility] PAC CHEMISTRY ORDERABLES Lety l Result [facility] [address] [place] [address] * FOLIC ACID (FOLATE) (09/13/2024 9:39 AM HAND STONE POLISHER) FOLATE 17.7 7.0 - 31.4 ng/mL 09/13/2024 11:27 AM HAND STONE POLISHER [facility] IS THE PATIENT REQUIRED TO BE FASTING? No 09/13/2024 11:27 AM HAND STONE POLISHER [facility] Blood Venipuncture / Unknown 09/13/2024 9:39 AM HAND STONE POLISHER 09/13/2024 9:39 AM HAND STONE POLISHER [facility] PAC CHEMISTRY ORDERABLES Lety l Result [facility] [address] [place] [address] * FERRITIN (09/13/2024 9:39 AM HAND STONE POLISHER) FERRITIN 89 5 - 204 ng/mL 09/13/2024 11:13 AM HAND STONE POLISHER [facility] Blood Venipuncture / Unknown 09/13/2024 9:39 AM HAND STONE POLISHER 09/13/2024 9:39 AM HAND STONE POLISHER [facility] PAC CHEMISTRY ORDERABLES Lety l Result [facility] [address] [place] [address] from Last 3 Months Insurance MEDICAID [facility] Care Teams Public Health Training Assistant Relationship Specialty Start Date End Date Magalis Palm, MEDICAL RECORD TRANSCRIBER, WEATHERSTRIP MACHINE OPERATOR [address] [place] [address] PCP - General Advanced Practice Nurse 03/01/24 Hawa Rangel MD [address] [place] [address] Consulting Physician Internal Medicine 04/14/24
[2024-11-05 00:54] LABS: Basophils Percent Auto 0.4 % (0.2-1.2); Eosinophils Absolute Auto 0.1 K/mm3 (0-0.3); Eosinophils Percent Auto 1.2 % (0-4.4); Hematocrit 35.4 % (37.0-47.0); Hemoglobin 11.4 g/dL (12.0-15.0); Immature Granulocyte Absolute 0.02 K/mm3 (0.00-0.031); Immature Granulocyte Percent A 0.3 % (0-0.5); Lymphocytes Percent Auto 37.3 % (18.3-44.2); Mean Corpuscular HGB Conc 32.2 g/dl (32-36); Mean Corpuscular Volume 83.9 fl (80-100); Monocytes Absolute Auto 0.6 K/mm3 (0.1-0.6); Monocytes Percent Auto 9.6 % (2.6-8.5); Neutrophils Absolute Auto 3.4 K/mm3 (1.3-6.7); Neutrophils Percent Auto 51.2 % (45.5-73.1); Platelet Count Result 241 k/mm3 (150-375); Red Blood Count 4.22 M/mm3 (4.2-5.4); Red Cell Distribution Width 17.2 % (11.5-14.5); White Blood Count 6.7 K/mm3 (4.5-10.0)
--- NOTE | 2024-11-05 00:58 | ED_ITS ---
HPI - Psych General Chief Complaint: Psychiatric Symptoms <Onelia Chance PA-C - Last Filed: 11/05/24 02:11> Stated Complaint: Auditory hallucinations <ZAYNAB Teran Last Filed: 11/05/24 02:11> Time Seen by Provider: 11/05/24 00:13 <ZAYNAB Teran Last Filed: 11/05/24 02:11> Source: patient and old records reviewed <Onelia Chance PA-C - Last Filed: 11/05/24 02:11> Mode of arrival: EMS <ZAYNAB Teran Last Filed: 11/05/24 02:11> Limitations: no limitations <ZAYNAB Teran Last Filed: 11/05/24 02:11> History of Present Illness HPI Narrative: Patient is a 29-year-old female who presents the ED via EMS with report of auditory hallucinations. Patient has history of depression, anxiety, bipolar 1 disorder. Per EMS report, patient called the crisis hotline today reporting that she was having auditory hallucinations. She states she has had these voices in her head since 2020. She also admits to having increased depression anxiety over the last couple of days. States she has had difficulty focusing on tasks due to feeling so anxious. Was referred to the ED for medical clearance. Patient denies any SI or HI. <ZAYNAB Teran Last Filed: 11/05/24 02:11> Related Data Home Medications: Home Medications ?Medication ?Instructions ?Recorded ?Confirmed ?Last Taken ?Type chlorhexidine gluconate 0.12 % 15 ml buccal BID 07/02/21 07/02/21 Unknown History mouthwash (Peridex) sodium chloride 0.65 % nasal spray 1 spray intranasal BID PRN 07/02/21 07/02/21 Unknown History aerosol ([place]uron Nasal) <ZAYNAB Teran Last Filed: 11/05/24 02:11> Allergies/Adverse Reactions: Allergies Allergy/AdvReac Type Severity Reaction Status Date / Time No Known Allergies Allergy Verified 11/05/24 08:07 <ZAYNAB Teran Last Filed: 11/05/24 02:11> Review of Systems 2 Review of Systems: All systems reviewed & are unremarkable except as noted in HPI. <Onelia Chance PA-C - Last Filed: 11/05/24 02:11> All systems reviewed & are unremarkable except as noted in HPI and below < Onelia Chance PA-C - Last Filed: 11/05/24 02:11> PMFSH Past Medical History Medical History: Medical History Anxiety and depression Asthma <Onelia Chance PA-C - Last Filed: 11/05/24 02:11> Social History Social History: Social History Smoking status: Former smoker Tobacco type: cigarettes Alcohol intake: current Substance use: never Substance use type: does not use Living arrangements: with family Occupation/Education: unemployed Gender identity (if verbalized by the patient): Female <Onelia Chance PA-C - Last Filed: 11/05/24 02:11> Exam 2 Narrative: GENERAL: Anxious appearing, well-nourished, non-toxic, in no acute distress. HEAD: Normocephalic, atraumatic. RESPIRATORY: Airway patent, respirations nonlabored. Clear to auscultation bilaterally, no rales, rhonchi, wheezing. CARDIOVASCULAR: Regular rate and rhythm without murmurs, rubs, or gallops. MUSCULOSKELETAL: Moves all extremities. No gross deformities. SKIN: Warm, dry, normal color. NEURO: A&O X3. Speech clear. Cranial nerves II-XII grossly intact. Steady gait. No ataxic movements. No focal deficits. PSYCHIATRIC: Somewhat paranoid and anxious. Cooperative, answers all questions. Somewhat rambling thoughts. <Onelia Chance PA-C - Last Filed: 11/05/24 02:11> Course Course Emergency Course: ZYCH 0700: Patient is medically cleared for Psych transport and treatment. No events overnight. Still awaiting placement. Signed out to the oncoming doctor. <Ubaldo Jessica MD - Last Filed: 11/05/24 06:25> PRAFUL 0700: Patient is medically cleared for Psych transport and treatment. No events overnight. Still awaiting placement. Signed out to the oncoming doctor. Johnathon 0700: Patient signed out to me. It is reported that she has been having hallucinations. She required no medications overnight or while in the emergency department during the 1st part of my shift. She was pending placement and I am informed approximately 06 07 that she has been accepted at a facility. Transportation will be arranged. <Cecily Diego MD - Last Filed: 11/05/24 10:32> Vital Signs Vital signs: Vital Signs Pulse Rate 53 L 11/05/24 00:17 Respiratory Rate 18 11/05/24 00:17 Blood Pressure 125/73 11/05/24 00:17 Pulse Oximetry 100 11/05/24 00:17 Oxygen Delivery Room Air 11/05/24 00:17 Pulse Rate 78 11/05/24 09:46 Respiratory Rate 16 11/05/24 09:46 Blood Pressure 146/98 H 11/05/24 09:46 Pulse Oximetry 100 11/05/24 09:46 Oxygen Delivery Room Air 11/05/24 00:17 <Onelia Chance PA-C - Last Filed: 11/05/24 02:11> Vital Signs Pulse Rate 53 L 11/05/24 00:17 Respiratory Rate 18 11/05/24 00:17 Blood Pressure 125/73 11/05/24 00:17 Pulse Oximetry 100 11/05/24 00:17 Oxygen Delivery Room Air 11/05/24 00:17 Pulse Rate 78 11/05/24 09:46 Respiratory Rate 16 11/05/24 09:46 Blood Pressure 146/98 H 11/05/24 09:46 Pulse Oximetry 100 11/05/24 09:46 Oxygen Delivery Room Air 11/05/24 00:17 <Ubaldo Jessica MD - Last Filed: 11/05/24 06:25> Vital Signs Pulse Rate 53 L 11/05/24 00:17 Respiratory Rate 18 11/05/24 00:17 Blood Pressure 125/73 11/05/24 00:17 Pulse Oximetry 100 11/05/24 00:17 Oxygen Delivery Room Air 11/05/24 00:17 Pulse Rate 78 11/05/24 09:46 Respiratory Rate 16 11/05/24 09:46 Blood Pressure 146/98 H 11/05/24 09:46 Pulse Oximetry 100 11/05/24 09:46 Oxygen Delivery Room Air 11/05/24 00:17 <Cecily Diego MD - Last Filed: 11/05/24 10:32> MDM - Psych MDM Narrative Medical decision making narrative: Patient presented to ED with increased depression/anxiety, auditory hallucinations. History of depression, anxiety, bipolar 1. Call crisis hotline today and was referred to the ED for medical clearance. ED psych workup was initiated. Laboratory studies unremarkable. Consistent with mild dehydration. Patient tolerating p.o.. Given fluids in the ED. Patient medically cleared to undergo psychiatric evaluation by crisis team. Care signed out to Dr. Jessica at shift change pending crisis eval/dispo. <Onelia Chance PA-C - Last Filed: 11/05/24 02:11> Medical Records Attestation: I reviewed the patient's medical records. <Onelia Chance PA-C - Last Filed: 11/05/24 02:11> Lab Data Attestation: I reviewed the patient's lab results. <Onelia Chance PA-C - Last Filed: 11/05/24 02:11> Result diagrams: 11/05/24 00:47 11/05/24 00:47 <Onelia Chance PA-C - Last Filed: 11/05/24 02:11> Labs: Lab Results 11/05/24 11/05/24 11/05/24 Range/Units 00:47 01:27 01:39 WBC 6.7 (4.5-10.0) K/mm3 RBC 4.22 (4.2-5.4) M/mm3 Hgb 11.4 L (12.0-15.0) g/dL Hct 35.4 L (37.0-47.0) % MCV 83.9 (80-100) fl MCH 27.0 (26-34) pg MCHC 32.2 (32-36) g/dl RDW 17.2 H (11.5-14.5) % Plt Count 241 (150-375) k/mm3 MPV 12.0 H (7.4-10.4) fl Immature Gran % (Auto) 0.3 (0-0.5) % Neut % (Auto) 51.2 (45.5-73.1) % Lymph % (Auto) 37.3 (18.3-44.2) % [place] % (Auto) 9.6 H (2.6-8.5) % Eos % (Auto) 1.2 (0-4.4) % Baso % (Auto) 0.4 (0.2-1.2) % Lymph # (Auto) 2.50 (0.9-3.2) K/mm3 [place] # (Auto) 0.6 (0.1-0.6) K/mm3 Eos # (Auto) 0.1 (0-0.3) K/mm3 Baso # (Auto) 0.0 (0.0-0.1) K/mm3 Abs Immat Gran (auto) 0.02 (0.00-0.031) K/mm3 Absolute Neuts (auto) 3.4 (1.3-6.7) K/mm3 Absolute Nucleated RBC 0.000 (0.0-0.012) K/mm3 Nucleated RBC % 0.0 (0.0-0.2) % Sodium 147 H (137-145) mmol/L Potassium 3.7 (3.4-5.0) mmol/L Chloride 110 H (98-107) mmol/L Carbon Dioxide 24 (22-30) mmol/L Anion Gap 13 H (4-12) mmol/L BUN 6 L (7-17) mg/dL Creatinine 0.75 (0.7-1.0) mg/dL Estim Creat Clear Calc Not Reportable Estimated GFR > 60 (59 - ) Glucose 83 (65-110) mg/dL Calcium 9.6 (8.4-10.2) mg/dL Total Bilirubin 0.7 (0.2-1.3) mg/dL AST 27 (14-36) U/L ALT 18 (6-35) U/L Alkaline Phosphatase 66 (38-126) U/L Total Protein 9.0 H (6.3-8.2) g/dL Albumin 4.6 (3.5-5.1) g/dL TSH 2.350 (0.465-4.680) uIU/mL Urine Color Yellow (Yellow) Urine Appearance Cloudy H (Clear) Urine pH 5.5 (5.0-9.0) Ur Specific [place] 1.034 (1.001-1.035) Urine Protein 1+ H (Negative) mg/dL Urine Glucose (UA) Negative (Negative) mg/dL Urine Ketones 3+ H (Negative) mg/dL Ur Blood (Man) Negative (Negative) Urine Nitrate Negative (Negative) Urine Bilirubin Negative (Negative) Urine Urobilinogen 1.0 (<2.0) mg/dL Leukocyte Esterase Rfl Negative (Negative) TAMMI/UL Urine RBC 0-2 (0-2) /hpf Urine WBC 0-5 (0-3) /hpf Ur Squamous Epith Cells Moderate (Few) /hpf Urine Bacteria Rare /hpf Urine Casts 3-5 POC Urine HCG, Qual Negative (Negative) Salicylates < 1.0 L (2-20) mg/dL Urine Opiates Screen Negative (Negative) Urine Methadone Screen Negative (Negative) Acetaminophen < 10 L (10-30) ug/mL Ur Barbiturates Screen Negative (Negative) Ur Phencyclidine Scrn Negative (Negative) Ur Amphetamine Screen Negative (Negative) U Benzodiazepines Scrn Negative (Negative) Urine Cocaine Screen Negative (Negative) U Cannabinoids Screen Negative (Negative) Ethyl Alcohol < 10 (<10) mg/dL SARS-CoV-2 RNA (RT-PCR) Negative (Negative) <Onelia Chance PA-C - Last Filed: 11/05/24 02:11> Lab Results 11/05/24 11/05/24 11/05/24 Range/Units 00:47 01:27 01:39 WBC 6.7 (4.5-10.0) K/mm3 RBC 4.22 (4.2-5.4) M/mm3 Hgb 11.4 L (12.0-15.0) g/dL Hct 35.4 L (37.0-47.0) % MCV 83.9 (80-100) fl MCH 27.0 (26-34) pg MCHC 32.2 (32-36) g/dl RDW 17.2 H (11.5-14.5) % Plt Count 241 (150-375) k/mm3 MPV 12.0 H (7.4-10.4) fl Immature Gran % (Auto) 0.3 (0-0.5) % Neut % (Auto) 51.2 (45.5-73.1) % Lymph % (Auto) 37.3 (18.3-44.2) % [place] % (Auto) 9.6 H (2.6-8.5) % Eos % (Auto) 1.2 (0-4.4) % Baso % (Auto) 0.4 (0.2-1.2) % Lymph # (Auto) 2.50 (0.9-3.2) K/mm3 [place] # (Auto) 0.6 (0.1-0.6) K/mm3 Eos # (Auto) 0.1 (0-0.3) K/mm3 Baso # (Auto) 0.0 (0.0-0.1) K/mm3 Abs Immat Gran (auto) 0.02 (0.00-0.031) K/mm3 Absolute Neuts (auto) 3.4 (1.3-6.7) K/mm3 Absolute Nucleated RBC 0.000 (0.0-0.012) K/mm3 Nucleated RBC % 0.0 (0.0-0.2) % Sodium 147 H (137-145) mmol/L Potassium 3.7 (3.4-5.0) mmol/L Chloride 110 H (98-107) mmol/L Carbon Dioxide 24 (22-30) mmol/L Anion Gap 13 H (4-12) mmol/L BUN 6 L (7-17) mg/dL Creatinine 0.75 (0.7-1.0) mg/dL Estim Creat Clear Calc Not Reportable Estimated GFR > 60 (59 - ) Glucose 83 (65-110) mg/dL Calcium 9.6 (8.4-10.2) mg/dL Total Bilirubin 0.7 (0.2-1.3) mg/dL AST 27 (14-36) U/L ALT 18 (6-35) U/L Alkaline Phosphatase 66 (38-126) U/L Total Protein 9.0 H (6.3-8.2) g/dL Albumin 4.6 (3.5-5.1) g/dL TSH 2.350 (0.465-4.680) uIU/mL Urine Color Yellow (Yellow) Urine Appearance Cloudy H (Clear) Urine pH 5.5 (5.0-9.0) Ur Specific [place] 1.034 (1.001-1.035) Urine Protein 1+ H (Negative) mg/dL Urine Glucose (UA) Negative (Negative) mg/dL Urine Ketones 3+ H (Negative) mg/dL Ur Blood (Man) Negative (Negative) Urine Nitrate Negative (Negative) Urine Bilirubin Negative (Negative) Urine Urobilinogen 1.0 (<2.0) mg/dL Leukocyte Esterase Rfl Negative (Negative) TAMMI/UL Urine RBC 0-2 (0-2) /hpf Urine WBC 0-5 (0-3) /hpf Ur Squamous Epith Cells Moderate (Few) /hpf Urine Bacteria Rare /hpf Urine Casts 3-5 POC Urine HCG, Qual Negative (Negative) Salicylates < 1.0 L (2-20) mg/dL Urine Opiates Screen Negative (Negative) Urine Methadone Screen Negative (Negative) Acetaminophen < 10 L (10-30) ug/mL Ur Barbiturates Screen Negative (Negative) Ur Phencyclidine Scrn Negative (Negative) Ur Amphetamine Screen Negative (Negative) U Benzodiazepines Scrn Negative (Negative) Urine Cocaine Screen Negative (Negative) U Cannabinoids Screen Negative (Negative) Ethyl Alcohol < 10 (<10) mg/dL SARS-CoV-2 RNA (RT-PCR) Negative (Negative) <Ubaldo Jessica MD - Last Filed: 11/05/24 06:25> Lab Results 11/05/24 11/05/24 11/05/24 Range/Units 00:47 01:27 01:39 WBC 6.7 (4.5-10.0) K/mm3 RBC 4.22 (4.2-5.4) M/mm3 Hgb 11.4 L (12.0-15.0) g/dL Hct 35.4 L (37.0-47.0) % MCV 83.9 (80-100) fl MCH 27.0 (26-34) pg MCHC 32.2 (32-36) g/dl RDW 17.2 H (11.5-14.5) % Plt Count 241 (150-375) k/mm3 MPV 12.0 H (7.4-10.4) fl Immature Gran % (Auto) 0.3 (0-0.5) % Neut % (Auto) 51.2 (45.5-73.1) % Lymph % (Auto) 37.3 (18.3-44.2) % [place] % (Auto) 9.6 H (2.6-8.5) % Eos % (Auto) 1.2 (0-4.4) % Baso % (Auto) 0.4 (0.2-1.2) % Lymph # (Auto) 2.50 (0.9-3.2) K/mm3 [place] # (Auto) 0.6 (0.1-0.6) K/mm3 Eos # (Auto) 0.1 (0-0.3) K/mm3 Baso # (Auto) 0.0 (0.0-0.1) K/mm3 Abs Immat Gran (auto) 0.02 (0.00-0.031) K/mm3 Absolute Neuts (auto) 3.4 (1.3-6.7) K/mm3 Absolute Nucleated RBC 0.000 (0.0-0.012) K/mm3 Nucleated RBC % 0.0 (0.0-0.2) % Sodium 147 H (137-145) mmol/L Potassium 3.7 (3.4-5.0) mmol/L Chloride 110 H (98-107) mmol/L Carbon Dioxide 24 (22-30) mmol/L Anion Gap 13 H (4-12) mmol/L BUN 6 L (7-17) mg/dL Creatinine 0.75 (0.7-1.0) mg/dL Estim Creat Clear Calc Not Reportable Estimated GFR > 60 (59 - ) Glucose 83 (65-110) mg/dL Calcium 9.6 (8.4-10.2) mg/dL Total Bilirubin 0.7 (0.2-1.3) mg/dL AST 27 (14-36) U/L ALT 18 (6-35) U/L Alkaline Phosphatase 66 (38-126) U/L Total Protein 9.0 H (6.3-8.2) g/dL Albumin 4.6 (3.5-5.1) g/dL TSH 2.350 (0.465-4.680) uIU/mL Urine Color Yellow (Yellow) Urine Appearance Cloudy H (Clear) Urine pH 5.5 (5.0-9.0) Ur Specific [place] 1.034 (1.001-1.035) Urine Protein 1+ H (Negative) mg/dL Urine Glucose (UA) Negative (Negative) mg/dL Urine Ketones 3+ H (Negative) mg/dL Ur Blood (Man) Negative (Negative) Urine Nitrate Negative (Negative) Urine Bilirubin Negative (Negative) Urine Urobilinogen 1.0 (<2.0) mg/dL Leukocyte Esterase Rfl Negative (Negative) TAMMI/UL Urine RBC 0-2 (0-2) /hpf Urine WBC 0-5 (0-3) /hpf Ur Squamous Epith Cells Moderate (Few) /hpf Urine Bacteria Rare /hpf Urine Casts 3-5 POC Urine HCG, Qual Negative (Negative) Salicylates < 1.0 L (2-20) mg/dL Urine Opiates Screen Negative (Negative) Urine Methadone Screen Negative (Negative) Acetaminophen < 10 L (10-30) ug/mL Ur Barbiturates Screen Negative (Negative) Ur Phencyclidine Scrn Negative (Negative) Ur Amphetamine Screen Negative (Negative) U Benzodiazepines Scrn Negative (Negative) Urine Cocaine Screen Negative (Negative) U Cannabinoids Screen Negative (Negative) Ethyl Alcohol < 10 (<10) mg/dL SARS-CoV-2 RNA (RT-PCR) Negative (Negative) <Cecily Diego MD - Last Filed: 11/05/24 10:32> Discharge Plan Discharge Clinical Impression: Anxiety and depression, Auditory hallucinations <Onelia Chance PA-C - Last Filed: 11/05/24 02:11> Patient Disposition: Psychiatric Hosp <Onelia Chance PA-C - Last Filed: 11/05/24 02:11> Condition: Serious <Onelia Chance PA-C - Last Filed: 11/05/24 02:11> Patient Language: Monegasque <Onelia Chance PA-C - Last Filed: 11/05/24 02:11> Prescriptions: No Action chlorhexidine gluconate [Peridex] 0.12 % mouthwash 15 ml buccal BID sodium chloride [[place]uron Nasal] 0.65 % aerosol,spray 1 spray intranasal BID PRN risperidone 0.5 mg tablet 0.5 mg PO BID Qty: 60 0RF trazodone 50 mg tablet 50 mg PO QHS Qty: 30 0RF penicillin V potassium 500 mg tablet 500 mg PO TID Qty: 30 0RF ibuprofen [IBU] 600 mg tablet 600 mg PO Q6H PRN (Reason: pain) Qty: 20 0RF nitrofurantoin monohyd/m-cryst [Macrobid] 100 mg capsule 100 mg PO Q12H 7 Days Qty: 14 0RF Rx Instructions: must administer with a meal/food naproxen 500 mg tablet 500 mg PO BID PRN (Reason: pain) Qty: 20 0RF famotidine 20 mg tablet 20 mg PO DAILY Qty: 20 0RF ondansetron 4 mg tablet,disintegrating 4 mg PO Q8H Qty: 14 0RF cholecalciferol (vitamin D3) 1,250 mcg (50,000 unit) capsule 1,250 mcg PO WEEKLY Qty: 14 1RF albuterol sulfate 90 mcg/actuation HFA aerosol inhaler 1 inh inhalation Q4H PRN (Reason: shortness of breath or wheezing) Qty: 6.7 1RF <Onelia Chance PA-C - Last Filed: 11/05/24 02:11> Follow-up/Referrals: UNKNOWN,DOCTOR [Primary Care Provider] - <Onelia Chance PA-C - Last Filed: 11/05/24 02:11>
[2024-11-05 01:05] LABS: Alanine Aminotransferase 18 U/L (6-35); Albumin Level 4.6 g/dL (3.5-5.1); Alkaline Phosphatase 66 U/L (38-126); Anion Gap 13 mmol/L (4-12); Aspartate Amino Transferase 27 U/L (14-36); Bilirubin,Total 0.7 mg/dL (0.2-1.3); Blood Urea Nitrogen 6 mg/dL (7-17); Calcium 9.6 mg/dL (8.4-10.2); Carbon Dioxide 24 mmol/L (22-30); Chloride 110 mmol/L (98-107); Estimated Glomerular Filt Rate > 60; Glucose 83 mg/dL (65-110); Potassium 3.7 mmol/L (3.4-5.0); Sodium 147 mmol/L (137-145)
[2024-11-05 01:06] LABS: Acetaminophen < 10 ug/mL (10-30); Ethanol < 10 mg/dL (<10); Salicylate < 1.0 mg/dL (2-20)
[2024-11-05 01:33] VITALS: BP 143/73; PULSE 53; RESP 18; O2SAT 100
[2024-11-05 01:34] LABS: SARS-CoV-2 RNA PCR Negative (Negative)
[2024-11-05 01:40] LABS: Add Urine Microscopic? YES; Appearance Urine Cloudy (Clear); Bacteria Urine Rare /hpf; Bilirubin Urine Negative (Negative); Blood Urine Negative (Negative); Color Urine Yellow (Yellow); Glucose Urine UA Negative (Negative); Ketones Urine 3+ mg/dL (Negative); Leukocyte Esterase Ur Negative LEU/UL (Negative); Nitrate Urine Negative (Negative); Protein Urine 1+ mg/dL (Negative); RBC Urine 0-2 /hpf (0-2); Specific Grav Ur 1.034 (1.001-1.035); Squamous Epithelial Cell Urine Moderate /hpf (Few); WBC Urine 0-5 /hpf (0-3); pH Urine 5.5 (5.0-9.0)
[2024-11-05 01:41] LABS: BEDSIDEPREGUCG Negative (Negative)
[2024-11-05 01:50] LABS: Amphetamine Screen Urine Negative (Negative); Barbiturate Screen Urine Negative (Negative); Benzodiazepines Screen Urine Negative (Negative); Cannabinoid Screen Urine Negative (Negative); Cocaine Screen Urine Negative (Negative); Methadone Screen Urine Negative (Negative); Opiate Screen Urine Negative (Negative); Phencyclidine Screen Urine Negative (Negative)
--- NOTE | 2024-11-05 02:15 | PC.NURSE ---
This Rn spoke with Luis Daniel grant to let them know pt is medically cleared for placement.
[2024-11-05] MEDS: LORazepam (*CRX) 0.5 MG TABLET PO (02:30)
[2024-11-05 06:02] VITALS: BP 131/69; PULSE 56; RESP 18; O2SAT 99
--- NOTE | 2024-11-05 06:56 | PC.NURSE ---
Rn spoke with Luis Daniel from [facility] at this time for an update. Luis Daniel states he does not have an update for us. He states a lot of facilites are wanting him to wait till later this morning. Luis Daniel states he will probably call back around 0800 this morning.
[2024-11-05 08:08] VITALS: BP 156/92; PULSE 62; RESP 16; O2SAT 98
--- NOTE | 2024-11-05 09:02 | PC.NURSE ---
Luis Daniel from [facility] [phone] requests we fax pt chart to [facility], fax no [phone]
--- NOTE | 2024-11-05 09:32 | PC.NURSE ---
This RN spoke with Mike Coleman who requested to speak with pt
[2024-11-05 09:46] VITALS: BP 146/98; PULSE 78; RESP 16; O2SAT 100
--- NOTE | 2024-11-05 10:46 | PC.NURSE ---
This RN called report to [facility] and spoke with Raquel LEONARD, all questions answered
[2024-11-05 11:46] VITALS: BP 145/103; PULSE 91; RESP 16; TEMP 36.8; O2SAT 99
== END 2024-11-05 11:49 ==
PROVIDERS: Physician Assistant; Emergency Provider Student in an Organized Health Care Education/Training Program
DX: R44.0 Auditory hallucinations (principal); F31.9 Bipolar disorder, unspecified; F41.9 Anxiety disorder, unspecified; Z11.52 Encounter for screening for COVID-19; J45.909 Unspecified asthma, uncomplicated; Z87.891 Personal history of nicotine dependence; Z79.899 Other long term (current) drug therapy
CPT/HCPCS: 36415; 80053; 80143; 80179; 80307; 81001; 81025; 82077; 84443; 85025; 87635; 99285; A9270